=== PATIENT | female | born 1945 | race Caucasian/White ===

== ENCOUNTER → 2020-09-11 | Outpatient (CLI) | payer MEDICARE, OTHER ==
[~2020-09-11] MED LIST: ACET325 PO; ALUMAG30SU PO; ASPI81CH PO; ASPI81EC PO; Acetaminophen325 M1 PO; Aspir 8181 MG PO; BISA10S PR; CARV3.125 PO; CLOP75 PO; COLCRYS0.6 MG PO; DOCU100 PO; FAMO20 PO; HYDR1TAB94 PO; LAXATIVE17.2 MG PO; LEVO750 PO; LEVSOD100 PO; LEVSOD125 PO; LISI5 PO; LIVALO1 MG PO; Miralax17 GM PO; NITR.6SL SL; OMEP20ER PO; PANT40 PO; PROM25 PO; SOTO80 PO; Synthroid/Levothroid PO; Synthroid25 MCG PO; TRAM50 PO; WARF2.5 PO; WARF5 PO
== END | disposition home or self-care (01) ==
LOC: LAB 10:52 → LAB SHORT 10:52
DX: N39.0 Urinary tract infection, site not specified (principal)
CPT/HCPCS: 87077; 87086; 87186

== ENCOUNTER → 2020-10-12 | Outpatient (CLI) | payer MEDICARE, OTHER | END | disposition home or self-care (01) | LOC: LAB SHORT 18:16 → LAB 18:16 | DX: N39.0 Urinary tract infection, site not specified (principal) | CPT/HCPCS: 87086 ==

== ENCOUNTER → 2021-07-05 | Outpatient (CLI) | payer MEDICARE, OTHER | END | disposition home or self-care (01) | LOC: LAB SHORT 14:06 | DX: N39.0 Urinary tract infection, site not specified (principal) | CPT/HCPCS: 87086 ==

== ENCOUNTER → 2021-08-09 | Outpatient (CLI) | payer MEDICARE, OTHER ==
[2021-08-09 14:31] LABS: Source, Urine Clean Catch
[2021-08-09 19:06] LABS: Appearance, Urine Hazy (Clear); Bilirubin, Urine Neg (Neg); Blood, Urine 1+ (Neg); Color, Urine Yellow (P-Yellow); Glucose Qualitative, Urine Neg (Neg); Ketones, Urine Neg (Neg); Leukocyte Esterase, Urine 3+ (Neg); Nitrite, Urine Neg (Neg); Protein, Urine Neg (Neg); Urobilinogen, Urine NORM (Normal)
[2021-08-09 19:19] LABS: Bacteria Many /hpf; Squamous Epithelial Cells Few /hpf (Few)
== END | disposition home or self-care (01) ==
LOC: LAB SHORT 14:28
PROVIDERS: Family Medicine
DX: N39.0 Urinary tract infection, site not specified (principal)
CPT/HCPCS: 81001; 87077; 87086; 87186

== ENCOUNTER → 2021-10-06 | Outpatient (CLI) | payer MEDICARE, OTHER | END | disposition home or self-care (01) | LOC: LAB 15:34 → LAB SHORT 15:34 | DX: N39.0 Urinary tract infection, site not specified (principal) | CPT/HCPCS: 87077; 87086; 87186 ==

== ENCOUNTER 2021-10-14 13:56 | Inpatient (IN) | payer MEDICARE, OTHER ==
[~2021-10-14] VITALS: Ht 165.1 cm; Wt 62.7 kg
[2021-10-14 14:39] LABS: BASOPHILS ABSOLUTE AUTO 0.04 K/mm3 (0.00-0.23); BASOPHILS PERCENT AUTO 1 % (0-2); EOSINOPHILS ABSOLUTE AUTO 0.08 K/mm3 (0.00-0.68); EOSINOPHILS PERCENT AUTO 1 % (0-6); Hematocrit 42.1 % (33.0-51.0); Hemoglobin 14.3 g/dL (11.5-16.0); IMMATURE GRAN ABSOLUTE AUTO 0.03 K/mm3 (0.00-0.10); IMMATURE GRAN PERCENT AUTO 0 % (0-1); LYMPHOCYTES ABSOLUTE AUTO 1.36 K/mm3 (0.84-5.20); LYMPHOCYTES PERCENT AUTO 19 % (21-46); MONOCYTES ABSOLUTE AUTO 0.61 K/mm3 (0.16-1.47); MONOCYTES PERCENT AUTO 9 % (4-13); Mean Corpuscular HGB 30.2 pg (26.0-34.0); Mean Corpuscular Volume 89 fL (80-100); Mean Platelet Volume 10.1 fL (9.1-12.4); NEUTROPHILS ABSOLUTE AUTO 5.05 K/mm3 (1.96-9.15); NEUTROPHILS PERCENT AUTO 70 % (41-73); Platelet Count 404 K/mm3 (150-400); RDW Coefficient Variation 12.8 % (11.7-14.2); RDW Standard Deviation 42.2 fL (35.1-46.3); Red Blood Cell Count 4.74 M/mm3 (3.80-5.20); White Blood Cell Count 7.17 K/mm3 (4.00-11.30)
[2021-10-14 15:02] LABS: Albumin, Blood 3.8 g/dL (3.4-5.0); Albumin/Globulin Ratio 0.9 (0.8-1.8); Bilirubin, Total 0.4 mg/dL (0.1-1.0); Creatinine, Blood 0.92 mg/dL (0.40-1.00); Globulin, Blood 4.1 g/dL (2.2-4.0); Potassium, Blood 3.9 mmol/L (3.5-5.5); Total Protein, Blood 7.9 g/dL (6.4-8.2)
[2021-10-14] MEDS ORDERED: BUPR75 PO (16:04)
[2021-10-14] MEDS ORDERED: PRAV20 PO (16:04)
[2021-10-14] MEDS ORDERED: NITR.4SL SL (16:05)
[2021-10-14] MEDS ORDERED: Isosorbide Mono30 MG PO (16:05)
[2021-10-14 19:31] LABS: International Normalized Ratio 2.51; Prothrombin Time Results 24.8 Sec (9.7-11.5)
--- NOTE | 2021-10-15 01:17 | NUR ---
CALL TO DAUGHTER PT REQUESTED THAT DAUGHTER JIM BE UPDATED WITH NEW ROOM # AND REASON FOR HIGHER LEVEL OF CARE. UPDATED HER WITH ANSWERED ALL QUESTIONS, NOTIFIED PRIMARY RN BENI.
[2021-10-15 02:32] LABS: BASOPHILS ABSOLUTE AUTO 0.04 K/mm3 (0.00-0.23); BASOPHILS PERCENT AUTO 1 % (0-2); EOSINOPHILS ABSOLUTE AUTO 0.06 K/mm3 (0.00-0.68); EOSINOPHILS PERCENT AUTO 1 % (0-6); Hematocrit 40.5 % (33.0-51.0); Hemoglobin 13.4 g/dL (11.5-16.0); IMMATURE GRAN ABSOLUTE AUTO 0.07 K/mm3 (0.00-0.10); IMMATURE GRAN PERCENT AUTO 1 % (0-1); LYMPHOCYTES ABSOLUTE AUTO 1.15 K/mm3 (0.84-5.20); LYMPHOCYTES PERCENT AUTO 14 % (21-46); MONOCYTES ABSOLUTE AUTO 0.74 K/mm3 (0.16-1.47); MONOCYTES PERCENT AUTO 9 % (4-13); Mean Corpuscular HGB 29.5 pg (26.0-34.0); Mean Corpuscular HGB Conc 33.1 g/dL (31.5-36.5); Mean Corpuscular Volume 89 fL (80-100); Mean Platelet Volume 10.1 fL (9.1-12.4); NEUTROPHILS ABSOLUTE AUTO 6.11 K/mm3 (1.96-9.15); NEUTROPHILS PERCENT AUTO 75 % (41-73); Platelet Count 338 K/mm3 (150-400); RDW Coefficient Variation 12.8 % (11.7-14.2); RDW Standard Deviation 41.8 fL (35.1-46.3); Red Blood Cell Count 4.54 M/mm3 (3.80-5.20); White Blood Cell Count 8.17 K/mm3 (4.00-11.30)
[2021-10-15 02:51] LABS: Albumin, Blood 3.3 g/dL (3.4-5.0); Albumin/Globulin Ratio 0.9 (0.8-1.8); Bilirubin, Total 0.5 mg/dL (0.1-1.0); Calcium, Blood 9.5 mg/dL (8.5-10.1); Creatinine, Blood 0.92 mg/dL (0.40-1.00); Globulin, Blood 3.6 g/dL (2.2-4.0); Total Protein, Blood 6.9 g/dL (6.4-8.2)
--- NOTE | 2021-10-15 05:53 | NUR ---
SHIFT SUMMARY PT TRANSFERRED TO UNIT FROM MEDICAL FLOOR. AXO. IN SR WITH APARENT ST CHANGES, NO MAJOR CHANGE FROM ER EKG. PT HAD RECEIVED IV MOP AND SL NITRO ON MED. PT HAS NOT REQUIRED THESE UPON TRANSFER. PT HAS STATED BEING COMFORTABLE POST THESE MED ADMINISTRATIONS AND TRANSFER. HEPARIN GTT INITIATED. ADMISSION COMPLETED. PT NPO SINCE MIDNIGHT FOR POSSIBLE ANGIO. BED ALARM ON.
[2021-10-15 10:47] LABS: International Normalized Ratio 2.14; Prothrombin Time Results 21.4 Sec (9.7-11.5)
--- NOTE | 2021-10-15 14:45 | NUR ---
SHIFT SUMMARY: UPON BEGINNING OF SHIFT, PT WAS HAVING ANGINA AND WAS GIVEN A NITRO PATCH. PT. HAS AN INCREASE IN COMFORT FOR ANGINA, AND CURRENTLY STATES SHE ONLY HAS A SCANT AMOUNT OF PRESSURE, NO PAIN. PT. WAS NPO UNTIL AROUND [address] CARLSON (HOTEL OFFICE MANAGER) CAME IN AND LET THE PT. KNOW THAT AN ANGIO WAS NOT GOING TO HAPPEN TODAY. PT. WAS INFORMED OF HER TWO OPTIONS TO AN ANGIO MONDAY OR TWO DAY HEPRIN INFUSION W/ A ROAD TRIAL (WALKING AROUND PER HOTEL OFFICE MANAGER). PT. STATED SHE IS LEANING MORE TOWARDS THE HEPRIN INFUSIONS. PT. STATES THAT SHE IS COMFORTABLE, AND HAS NO COMPLAINTS. SHE IS A 1P SBA TO THE BATHROOM, AND A&OX4. WILL CONTINUE TO MONITOR.
--- NOTE | 2021-10-15 14:54 | NUR ---
Pt. is awake in bed and welcomes my visit. Pt is pleasant and only slightly unsettled about the care needs of her at home. Establish rapport. Pt. displays evidence of engagement and bridget. Prayed with Pt. Pt. verbalized gratitude for the spiritual care visit.
--- NOTE | 2021-10-15 22:08 | NUR ---
NITRO PATCH OFF AT 2200 PER ORDER, PT DENIES CP. UP TO BATHROOM AND MEDICATED WITH ZOFRAN FOR NAUSEA PER REQUEST. BP 113/51 (67), HR 68 BPM.
--- NOTE | 2021-10-16 08:04 | NUR ---
SHIFT SUMMARY PT AOX4, DENIES CP T/O SHIFT FOR THIS RN WHEN ASKED. C/O SOME LIGHTHEADEDNESS, NAUSEA, AND DIZZINESS. MEDICATED FOR NAUSEA PER ORDERS. UP TO BATHROOM INDEPENDENTLY. NO CHANGES TO HEPARIN GTT, CONTINUES AT 9 U/KG/HR.
[2021-10-16 08:46] LABS: Hematocrit 38.7 % (33.0-51.0); Hemoglobin 12.6 g/dL (11.5-16.0); Mean Platelet Volume 10.4 fL (9.1-12.4); Platelet Count 328 K/mm3 (150-400)
--- NOTE | 2021-10-16 15:19 | NUR ---
SHIFT SUMMARY PT'S ONLY DISCOMFORT IS SLIGHT CHEST PAIN THAT WAS PRESENT AT THE BEGINNING OF THE SHIFT. CARDIOLIGIST CHANGED MEDICATIONS, AND NITRO PATCH WAS D/C'D. PT. HAS NOT C/O ANY MORE CHEST DISCOMFORT. HEPRIN DRIP INFUSING AT 9 gGTS W/O ANY BREAKS. PT AMBULATED TO THE BATHROOM AND REMAINS AT REST. SHE WAS SET UP FOR A BEDBATH AND IND GAVE HER SELF A BATH. HER V.S REMAIN STABLE, AND THERE ARE NO CONCERNS AT THIS TIME. WILL CONTINUE TO MONITOR
--- NOTE | 2021-10-16 22:37 | NUR ---
CALL TO HOSPITALIST RESIDENT MD JONES. PT REQUESTING THAT FAMOTIDINE ADMINISTRATION TIME BE CHANGED TO 1800 TO COINCIDE WITH HER HOME DOSING REGIMEN. OTHERWISE, PT HAS ISSUES WITH ACID REFLUX IN THE EVENING. ORDER RECEIVED TO CHANGE TIMING OF FAMOTIDINE ORDER AND OKAY TO GIVE AN EXTRA DOSE TONIGHT.
--- NOTE | 2021-10-17 01:00 | NUR ---
23:55 CALLED TO PATIENT'S ROOM DUE TO COMPLAINTS OF PAIN WHILE UP AMBULATING TO THE BATHROOM WITH BLOOD BANK WORKER. PT REPORTS 7/10 PAIN IN HER JAW AND EARS, HEAD AND RADIATING DOWN HER LEFT ARM. SHE REPORTS THAT THIS PAIN IS PRESENTING DIFFERENTLY THAN THE PAIN SHE EXPERIENCED PRIOR TO ADMISSION. SHE APPEARS ANXIOUS, FEARFUL AND IS CLOSE TO TEARS. 2 MG IV MORPHINE ADMINISTERED AND 2 LPM SUPPLEMENTAL OXYGEN APPLIED. VITAL SIGNS TAKEN (SEE EMR). EDUCATION PROVIDED REGARDING PLAN OF CARE RELATED TO CHEST PAIN. PAIN 7/10 PRIOR TO MORPHNE AND DECREASED TO 4/10 10 MINUTES POST ADMNINISTRATION AND THEN TO 2/10 30 MINUTES POST MORPHINE. ELECTRODE CLEANING MACHINE OPERATOR DR. PARIKH HAPPENED TO BE ON THE UNIT AT THE TIME OF THIS EVENT AND DID PROVIDE AN ORDER FOR SUBLINGUAL NITROGLYCERIN. ONE DOSE ADMINISTERED AND PATIENT REPORTED BEING PAIN FREE AT 00:55. PATIENT IS NOW RESTING COMFORTABLY. WILL CONTINUE TO MONITOR.
[2021-10-17 04:17] LABS: Hematocrit 35.5 % (33.0-51.0); Hemoglobin 11.5 g/dL (11.5-16.0); Mean Platelet Volume 10.4 fL (9.1-12.4); Platelet Count 317 K/mm3 (150-400)
--- NOTE | 2021-10-17 09:23 | NUR ---
MORNING BRADICARIDA EPISODE ABOUT 0900 THIS MORNING THE PT. WAS BROUGHT TO THE BATHROOM BY THE LEGAL ADMINISTRATIVE ASSISTANT, AND WHEN THE PT WAS IN THE RESTROOM SHE TOLD ME SHE NEEDED HELP BECAUSE SHE WAS FEELING LIGHT HEADED. PT WAS HAVING A BRADICARDIA EPISODE AND HER HEART RATE DROPPED TO 41 BPM. BE RN CAME TO HELP AND WE GOT THE PT. IN A WHEELCHAIR TO GET HER BACK TO BED. BEFORE GETTING IN BED THE PT. STATED SHE WAS GETTING MORE LIGHT HEADED AND THEN SHE PASSED OUT FOR ABOUT 5-10 SEC. THE CHARGE NURSE CAME IN AND WE WERE ABLE TO WAKE THE PT. AND GET HER BACK TO BED. THE PT'S BP REMAINED STABLE AT125/57 (77) AND HEART RATE OF 58 BPM. AN EKG WAS OBTAINED. PT. HAS HAD RECENT ISOSOBIDE INCREASES DUE TO AN EVENT OF ANGINA, AND HAS NOT TOLERATED HIGHER DOSES PRIOR TO HOSPITILATION. DOSE OF 120 MG PD GIVEN AT ABOUT 0630 ON TABLE INSPECTOR. PT. DOES NOT REPORT ANYMORE ANGINA, AND AT 0900 HAD THE BRADICARIDA EPISODE LISTED ABOVE. CALLED DR. ETLLEZ, AND GOT ORDERS FOR STRICT BEDREST, HOLD ALL BETA BLOCKERS, AND HE WILL REVIEW HER MEDICATIONS. PT.'S MEDICATIONS HELD DUE TO EPISDOE AND WILL ADMINISTER LATE. COREG WILL BE HELD.
--- NOTE | 2021-10-17 18:10 | NUR ---
SHIFT SUMMARY PT. WAS FEELING FAIRLY WELL THIS MORNING DESPITE HIS CRONIC BACK PAIN. HE WAS GIVEN BOWEL PREP AND HAD A BLACK TARRY LOOSE BM A SAMPLE WAS SENT FOR AN OCCULT TEST AND CAME BACK POSITIVE, FOLLOWED BY 2 BM'S, H&H DRAWN HGB DROPPED TO 7.1 WILL BE RECHECKED AT 2000 TONIGHT. GI HAS BEEN CONSULTED NO GI AVAILABLE TODAY WILL CLAL CONSULT IN AM, MORTGAGE COLLECTOR AWARE. PT. WAS C/O RUQ PAIN THIS AFTERNOON AND ULTRASOUND WAS PREFORMED SHOWING AN "ENGLARGED LIVER" PER HOSPITALIST. PT. WAS FEELING NAUSEOUS AND AN ORDER OF ZOFRAN WAS OBTAINED AND GIVEN. THE ZOFRAN DID NOT HELP, NOTIFIED. PT HAS REFUSED SOME REPOSITONINGS DUE TO PAIN. DAUGHTER CAME TO VISIT, AND WAS UPDATED ON THE PT. PT. IS NOT FEELING WELL, IS IN PAIN, AND SKIN IS COOL/CLAMMY. HE HAD A FEVER THIS MORNING BUT IT WENT AWAY AFTER TYLONAL WAS GIVEN. PROTONIX ORDERED AT 10MLS/HR. PT MEDICATED Q4 HRS FOR PAIN OXY 5MG PO. PT REFUSED TO EAT LUNCH AND DINNER DUE TO NAUSEA, PT NOW IN BED RESTING CALL LIGHTS IN REACH WILL REPORT TO ONCOMING SHIFT
--- NOTE | 2021-10-17 19:25 | NUR ---
ASSESSMENT/ASSUMED CARE PT SITTING UP IN BED. A&O. DENIES PAIN AT THIS TIME EXCEPT FOR ABD CRAMPING DUE TO STOOL SOFTENERS/DIARRHEA. PT USING HEATING PAD TO ABD FOR COMFORT. LUNGS CLEAR ON ROOMAIR. RESP EVEN AND NONLABORED. HEART RATE REGULAR IN THE 70'S. BP STABLE. NO EDEMA. MOVING SELF AROUND IN BED. HEPARIN INFUSING VIA IV 20G TO RIGHT FOREARM. SITE CLEAR. PT STATES,"I'M FEELING BETTER RIGHT NOW". HEPARIN TO BE STOPPED AT 0700 FOR ANGIO IN AM. PT NPO AFTER MIDNIGHT.
--- NOTE | 2021-10-17 19:51 | NUR ---
PT C/O CHEST PAIN 5/10 AFTER USING BED LONGO. MORE IN NECK AND SHOULDER. SOME IN CHEST BUT STRONGER IN NECK AND LEFT SHOULDER. MED WITH NTG SL.
--- NOTE | 2021-10-17 19:56 | NUR ---
PT REPORTS CHEST PAIN DOWN TO 03/15 AFTER ONE NTG. BP 143/58 (80) HEART RATE 71. MED WITH NTG SL. PT REPORTS," PAIN IS GETTING BETTER AND BETTER"
--- NOTE | 2021-10-17 19:59 | NUR ---
PT REPORTS NO CHEST PAIN OR PRESSURE AFTER TWO NTG SL. HEART RATE 69 BP 128/58 (77)
--- NOTE | 2021-10-17 22:30 | NUR ---
CHEST PAIN PT REPORTS CHEST PAIN 10/10 AFTER USING BEDPAN. PT MED WITH NTG SL AND EKG DONE. REPORTS CHEST PAIN 3/10 AFTER FIRST DOSE OF NTG. MED WITH SECOND DOSE OF NTG. NO PAIN AFTER SECOND DOSE OF NTG.
--- NOTE | 2021-10-17 23:41 | NUR ---
PT RESTING QUIETLY. DENIES PAIN OR DISCOMFORT AT THIS TIME
[2021-10-18 03:58] LABS: BASOPHILS ABSOLUTE AUTO 0.04 K/mm3 (0.00-0.23); BASOPHILS PERCENT AUTO 1 % (0-2); EOSINOPHILS ABSOLUTE AUTO 0.12 K/mm3 (0.00-0.68); EOSINOPHILS PERCENT AUTO 2 % (0-6); Hematocrit 36.6 % (33.0-51.0); Hemoglobin 11.9 g/dL (11.5-16.0); IMMATURE GRAN ABSOLUTE AUTO 0.01 K/mm3 (0.00-0.10); IMMATURE GRAN PERCENT AUTO 0 % (0-1); LYMPHOCYTES ABSOLUTE AUTO 1.13 K/mm3 (0.84-5.20); LYMPHOCYTES PERCENT AUTO 15 % (21-46); MONOCYTES PERCENT AUTO 12 % (4-13); Mean Corpuscular HGB 29.7 pg (26.0-34.0); Mean Corpuscular HGB Conc 32.5 g/dL (31.5-36.5); Mean Corpuscular Volume 91 fL (80-100); Mean Platelet Volume 10.4 fL (9.1-12.4); NEUTROPHILS ABSOLUTE AUTO 5.15 K/mm3 (1.96-9.15); NEUTROPHILS PERCENT AUTO 70 % (41-73); Platelet Count 319 K/mm3 (150-400); RDW Coefficient Variation 13.2 % (11.7-14.2); RDW Standard Deviation 43.8 fL (35.1-46.3); Red Blood Cell Count 4.01 M/mm3 (3.80-5.20); White Blood Cell Count 7.35 K/mm3 (4.00-11.30)
[2021-10-18 04:15] LABS: Albumin, Blood 3.1 g/dL (3.4-5.0); Albumin/Globulin Ratio 0.9 (0.8-1.8); Bilirubin, Total 0.5 mg/dL (0.1-1.0); Bun/Creatinine Ratio 11.8 (12.0-20.0); Calcium, Blood 8.9 mg/dL (8.5-10.1); Creatinine, Blood 0.94 mg/dL (0.40-1.00); Globulin, Blood 3.6 g/dL (2.2-4.0); Potassium, Blood 3.9 mmol/L (3.5-5.5); Total Protein, Blood 6.7 g/dL (6.4-8.2)
--- NOTE | 2021-10-18 05:35 | NUR ---
SHIFT SUMMARY PT RESTING QUIETLY. HAS BEEN NPO SINCE MIDNIGHT FOR POSSIBLE ANGIO THIS AM. PT HAS HAD TWO BOUTS OF CHEST PAIN BOTH AFTER USING THE BEDPAN. BOTH RELIEVED WITH TWO NTG SL. ABD CRAMPING IMPROVED DURING THE NIGHT. VSS. EKG DONE WITH CHEST PAIN, NO CHANGES. HEPARIN GTT INCREASED TO 10 UNITS/KG/HR. NEXT APTT AT 1100. REPORT TO ON COMING NURSE
--- NOTE | 2021-10-18 15:51 | NUR ---
MORNING SHIFT SUMMARY BEFORE ANGIO PT. HAD THREE EPISODES OF ANIGNA TODAY AFTER USING THE BED LONGO. SHE WAS GIVEN 1-2 NITRO TABS EVERY TIME AND IT STOPPED THE PAIN. HEPRIN WAS STOPPED AROUND 0725 THIS MORNING, IMDUR AND COREG HELD FOR ANGIO PER DR. TELLEZ. PT. HAS HAD SOME MODERATE CRAMPING IN HER LOWER ABDOMEN AND HAS A HEATING PAD FOR COMFORT, WHICH HAS HELPED. PT. NPO SINCE 0000, AND WENT FOR AN ANGIO AROUN 1530 THIS AFTER NOON. VS. HAVE REMAINED STABLE WILL CONTINUE TO MONITOR THE PT. AFTER SHE RETURNS FROM THE [employer] E[employer]IC WARFARE OPERATOR, DAUGHTER NOTIFIED, REQUESTED, WHEN PT WENT TO THE PROCEDURE.
--- NOTE | 2021-10-18 19:15 | NUR ---
UPDATE: DIETARY SERVICES DIRECTOR ROUNDING. DIETARY SERVICES DIRECTOR @ BEDSIDE TO DISCUSS PROCEDURE. UPDATED PT ON STENT & BALLOON PLACEMENT. NO HEPARIN gtt. PLAVIX & BRILINTA IN THE AM. DISCUSSED PAIN COVERAGE W/ PT & PROVIDER, ALL PARTIES AGREE COVERAGE IS ACCEPTABLE. OPPORTUNITY PROVIDED FOR QUESTIONS & ALL QUESTIONS ANSWERED.
--- NOTE | 2021-10-18 20:16 | NUR ---
ASSUMED CARE OF PT, BEDSIDE REPORT RECEIVED AT 1915, PT IS RESTING QUIETLY WITH BED FLAT AND TILTED SO THAT HOB IS SLIGHTLY ELEVATED WHILE MAINTAINING RIGHT GROIN ACCESS PRECAUTIONS. PT STATES THAT BED POSITION IS VERY COMFORTABLE. SHE IS ALERT AND ORIENTED, DENIES N/V, DENIES SOB/DYSPNEA, DENIES NUMBNESS/TINGLING, DOES ADMIT TO 2/10 PAIN TO LEFT CHEST RADIATING TO ANTERIOR NECK, JAW, LEFT SHOULDER AND AXILLA, DR TELLEZ AT BEDSIDE FOR PAIN ASSESSMENT AND STATES THAT THE PAIN IS EXPECTED, WILL CONT TO MONITOR. RIGHT GROIN ACCESS SITE DRESSING CDI, SMALL AMOUNT OF CAPILLARY BLEEDING IS NOTED UNDER DRESSING, SITE IS SOFT WITHOUT EVIDENCE OF BLEEDING OR HEMATOMA. PEDAL PULSES FULL OF NOTE ABLE TO PALPATE WELL THROUGH PT SOCKS. SHE DENIES FURTHER NEEDS AT THIS TIME, CALL LIGHT IN REACH AND WILL CALL FOR ASSISTANCE. VERBALIZES UNDERSTANDING OF ACTIVITY RESTRICTIONS RELATED TO GROIN ACCESS.
--- NOTE | 2021-10-19 05:36 | NUR ---
PT HAS HAD INTERMITTENT CHEST PAIN THIS SHIFT, WAS MEDICATED FOR CHEST PAIN BY DAY SHIFT RN JUST PRIOR TO DR TELLEZ ARRIVING TO BEDSIDE FOR PT UPDATE, PER DR TELLEZ, PAIN WAS EXPECTED POST INTERVENTION, FIRST REPORTED CHEST PAIN WAS 10/10 TO LEFT CHEST, SHOULDER, AXILLA, ANTERIOR NECK AND JAW. MORPHINE 2 MG IV DECREASED PAIN TO 2/10 UNTIL 0245 THIS AM AT WHICH TIME HER PAIN INCREASED TO 9/10. AT THIS TIME HER PAIN WAS LOCATED LEFT CHEST, SHOULDER, ANTERIOR NECK, AND JAW, SHE STATED THAT THERE WAS NO PAIN TO AXILLARY AREA. PAIN WAS CONTROLLED TO 3/10 WITH MORPHINE ADMINISTRATION, SHE AGAIN COMPLAINED OF PAIN AT 0445, 9/10, THIS INCIDENT PAIN WAS LOCATED LEFT CHEST, ANTERIOR NECK, AND JAW, NO PAIN TO LEFT SHOULDER. PAIN WAS AGAIN CONTROLLED TO 3/10 WHICH PT STATES IS ACCEPTABLE. SHE DENIED NAUSEA WITH EACH EPISODE OF CHEST PAIN AND ALSO NOTED THAT SHE DID NOT HAVE A FEELING OF IMPENDING DOOM, "I NOTICED THAT I WASN'T SCARED THIS TIME." COUGH AND DEEP BREATHING WAS DISCUSSED WITH PT, UNDERSTANDING VERBALIZED. RIGHT GROIN ACCESS SITE HAS MAINTAINED STABLE THROUGHOUT NOC, PULSES REMAIN FULL TO EXTREMITIES X 4.
--- NOTE | 2021-10-19 10:43 | NUR ---
ASSUMPTION OF CARE: PATIENT WAS SEEN BY DR. TELLEZ SHORTLY FOLLOWING ASSUMPTION. DC PLAVIX DUE TO BRILLINTA, CARDIAC DIET OK. ROOM WAS CLEAN, PATIENT IN NO ACUTE SIGNS OF DISTRESS, ASSESSMENT PREFORMED, UPON THE END OF ASSESSMENT PATIENT STARTED TO HAVE AN INCREASE TO HER BASELINE CHEST PAIN, TO A 4, MONITORED FOR THE NEXT 15 MINUTES, INCREASED TO A 5 PATIENT REQUESTED NITROQUICK, 1 X GIVEN WITH IMMEDIATE RELIEF, BLOOD PRESSURE STABLE. PATIENT ANGIO SITE IS C/D/I. PATIENT BP MAP >65 SPO2 AT REST 94-95PERCENT ON RA. NO TENDERNESS TO ABD. PATIENT CHEST PAIN EPISODES THROUGH THE NIGHT ARE DECREASEING IN DURATION FREQUENCY AND SEVERITY ACCORDING TO NIGHT RN AND PATIENT. IV FLUSHED. LATER DR. RIVERA STOPPED BY AND PATIENT HAS BEEN DOWNGRADED TO PCU BOTH GEOFF AND MIGUEL WANT TO MONITOR CHEST PAIN EPISODES TODAY OBSERVE FOR ANOTHER DAY AND DC. WITH OUTPATIENT FOLLOW UP. PATIENT HAS SMALL APPETITE OFFERED CRACKERS, AND SUPPLEMENTAL DRINKS. PATIENT RECEPTIVE TO EDUCATION AND UNDERSTANDING OF PLAN OF CARE.
[2021-10-19 12:07] LABS: International Normalized Ratio 1.21; Prothrombin Time Results 12.5 Sec (9.7-11.5)
--- NOTE | 2021-10-19 13:18 | NUR ---
transfer ASSUMED CARE OF THE PATIENT. REPORT TAKEN FROM PACKING MACHINE TENDER ANDREW. PT AMBULATED FROM ICU ROOM 15 TO PCU ROOM 15, MILDLY SOB ON ARRIVAL PT DENIED C/P. PT ORIENTED TO THE ROOM LAYOUT AND CALL SYSTEM. VS TAKEN WNL
--- NOTE | 2021-10-19 15:44 | NUR ---
PT A/OX4, PLEASANT AND COOPERATIVE. PT UP IND TO THE BATHROOM. PT APPEARS TO BE BREATHING EASILY ON RA AT THIS TIME. THE PT CONTINUES TO DENY C/P AT THIS TIME. CALL LIGHT IN REACH, REPORT GIVEN TO BE BASS
--- NOTE | 2021-10-19 16:12 | NUR ---
RECEIVED REPORT FROM KATERIN BASS, PT IN BED SURING REPORT, DENIES CP, AMBULATORY INDEPENDENT AND CAN REPOSITION SELF IN BED, PLAN TO DISCHARGE IN AM. VITALS STABLE. WILL MONITOR UNTIL END OF SHIFT
[2021-10-20 04:14] LABS: BASOPHILS ABSOLUTE AUTO 0.02 K/mm3 (0.00-0.23); BASOPHILS PERCENT AUTO 0 % (0-2); EOSINOPHILS ABSOLUTE AUTO 0.04 K/mm3 (0.00-0.68); EOSINOPHILS PERCENT AUTO 1 % (0-6); Hematocrit 35.4 % (33.0-51.0); IMMATURE GRAN ABSOLUTE AUTO 0.04 K/mm3 (0.00-0.10); IMMATURE GRAN PERCENT AUTO 1 % (0-1); LYMPHOCYTES ABSOLUTE AUTO 0.57 K/mm3 (0.84-5.20); LYMPHOCYTES PERCENT AUTO 7 % (21-46); MONOCYTES ABSOLUTE AUTO 1.12 K/mm3 (0.16-1.47); MONOCYTES PERCENT AUTO 13 % (4-13); Mean Corpuscular HGB 30.1 pg (26.0-34.0); Mean Corpuscular HGB Conc 33.9 g/dL (31.5-36.5); Mean Corpuscular Volume 89 fL (80-100); Mean Platelet Volume 10.4 fL (9.1-12.4); NEUTROPHILS ABSOLUTE AUTO 6.96 K/mm3 (1.96-9.15); NEUTROPHILS PERCENT AUTO 80 % (41-73); Platelet Count 300 K/mm3 (150-400); RDW Coefficient Variation 13.2 % (11.7-14.2); RDW Standard Deviation 42.6 fL (35.1-46.3); Red Blood Cell Count 3.99 M/mm3 (3.80-5.20); White Blood Cell Count 8.75 K/mm3 (4.00-11.30)
[2021-10-20 04:29] LABS: International Normalized Ratio 1.16; Prothrombin Time Results 12.1 Sec (9.7-11.5)
[2021-10-20 04:38] LABS: Bun/Creatinine Ratio 12.4 (12.0-20.0); Calcium, Blood 8.9 mg/dL (8.5-10.1); Creatinine, Blood 0.64 mg/dL (0.40-1.00); Potassium, Blood 3.8 mmol/L (3.5-5.5)
[2021-10-20] MEDS ORDERED: ASPI81CH PO (10:54)
[2021-10-20] MEDS ORDERED: ACET325 PO (10:54)
[2021-10-20] MEDS ORDERED: TICA90TA PO (10:55)
[2021-10-20] MEDS ORDERED: EZET10 (10:55)
== END 2021-10-20 12:17 | disposition home or self-care (01) | DRG 247 ==
LOC: ER 13:56 → MEDS 13:57 → PCU 13:57 → ER 17:46 → MEDS 17:46 → PCU 23:25 → ICUW 10-17 10:06 → PCU 10-17 10:07 → ICUW 10-18 17:44 → PCU 10-19 13:00
PROVIDERS: Internal Medicine; Internal Medicine Cardiovascular Disease; Physician Assistant; ADMIT Internal Medicine
PROC: 027135Z Dilation of Coronary Artery, Two Arteries with Two Drug-eluting Intraluminal Devices, Percutaneous Approach (ICD-10-PCS; principal; 2021-10-18)
PROC: 4A023N7 Measurement of Cardiac Sampling and Pressure, Left Heart, Percutaneous Approach (ICD-10-PCS; 2021-10-18)
PROC: B2181ZZ Fluoroscopy of Left Internal Mammary Bypass Graft using Low Osmolar Contrast (ICD-10-PCS; 2021-10-18)
PROC: B240ZZ3 Ultrasonography of Single Coronary Artery, Intravascular (ICD-10-PCS; 2021-10-18)
PROC: B2111ZZ Fluoroscopy of Multiple Coronary Arteries using Low Osmolar Contrast (ICD-10-PCS; 2021-10-18)
PROC: B2121ZZ Fluoroscopy of Single Coronary Artery Bypass Graft using Low Osmolar Contrast (ICD-10-PCS; 2021-10-18)
DX: I21.4 Non-ST elevation (NSTEMI) myocardial infarction (principal); N39.0 Urinary tract infection, site not specified; I48.19 Other persistent atrial fibrillation; T82.855A Stenosis of coronary artery stent, initial encounter; I50.22 Chronic systolic (congestive) heart failure; I13.0 Hypertensive heart and chronic kidney disease with heart failure and stage 1 through stage 4 chronic kidney disease, or unspecified chronic kidney disease; D63.1 Anemia in chronic kidney disease; E03.9 Hypothyroidism, unspecified; K21.9 Gastro-esophageal reflux disease without esophagitis; Z66 Do not resuscitate; E78.00 Pure hypercholesterolemia, unspecified; N18.2 Chronic kidney disease, stage 2 (mild); F41.9 Anxiety disorder, unspecified; B96.1 Klebsiella pneumoniae [K. pneumoniae] as the cause of diseases classified elsewhere; I25.110 Atherosclerotic heart disease of native coronary artery with unstable angina pectoris; Z86.39 Personal history of other endocrine, nutritional and metabolic disease; Z98.890 Other specified postprocedural states; Z88.2 Allergy status to sulfonamides; Z88.1 Allergy status to other antibiotic agents; Z86.19 Personal history of other infectious and parasitic diseases; Z90.49 Acquired absence of other specified parts of digestive tract; Z90.710 Acquired absence of both cervix and uterus; Z90.721 Acquired absence of ovaries, unilateral; Z87.891 Personal history of nicotine dependence; Z79.01 Long term (current) use of anticoagulants; Z95.1 Presence of aortocoronary bypass graft; Z95.5 Presence of coronary angioplasty implant and graft; Z88.5 Allergy status to narcotic agent; Z88.0 Allergy status to penicillin; Z88.8 Allergy status to other drugs, medicaments and biological substances; Z79.899 Other long term (current) drug therapy; Z79.02 Long term (current) use of antithrombotics/antiplatelets; Y71.2 Prosthetic and other implants, materials and accessory cardiovascular devices associated with adverse incidents
CPT/HCPCS: 36415; 71045; 76937; 78451; 80048; 80053; 84484; 85014; 85018; 85025; 85049; 85347; 85610; 85730; 92920; 92937; 92978; 93005; 93010; 93459; 96374; 96376; 99152; 99153; 99285-25; A9270; A9500; C1725; C1753; C1760; C1769; C1874; C1887; C1894; C8929; C9600; G0378; J1644; J2250; J2270; J2405; J3010; J7030; J7040; Q9957; Q9967

== ENCOUNTER → 2021-10-28 | Outpatient (CLI) | payer MEDICARE, OTHER ==
[~2021-10-28] MED LIST changes: +BUPR75 PO; +EZET10; +Isosorbide Mono30 MG PO; +NITR.4SL SL; +PRAV20 PO; +TICA90TA PO
== END | disposition home or self-care (01) ==
LOC: LAB SHORT 15:16
DX: N39.0 Urinary tract infection, site not specified (principal)
CPT/HCPCS: 87077; 87086; 87186

== ENCOUNTER → 2022-05-18 | Outpatient (CLI) | payer MEDICARE, OTHER | END | disposition home or self-care (01) | LOC: LAB SHORT 15:58 | DX: N39.0 Urinary tract infection, site not specified (principal) | CPT/HCPCS: 87077; 87086; 87186 ==

== ENCOUNTER 2022-06-05 23:42 | Inpatient (IN) | payer MEDICARE, OTHER ==
[~2022-06-05] VITALS: Ht 165.1 cm; Wt 62.5 kg
[2022-06-06 00:13] LABS: BASOPHILS ABSOLUTE AUTO 0.04 K/mm3 (0.00-0.23); BASOPHILS PERCENT AUTO 1 % (0-2); EOSINOPHILS ABSOLUTE AUTO 0.13 K/mm3 (0.00-0.68); EOSINOPHILS PERCENT AUTO 2 % (0-6); Hemoglobin 12.9 g/dL (11.5-16.0); IMMATURE GRAN ABSOLUTE AUTO 0.03 K/mm3 (0.00-0.10); IMMATURE GRAN PERCENT AUTO 0 % (0-1); LYMPHOCYTES ABSOLUTE AUTO 0.89 K/mm3 (0.84-5.20); LYMPHOCYTES PERCENT AUTO 12 % (21-46); MONOCYTES ABSOLUTE AUTO 0.71 K/mm3 (0.16-1.47); MONOCYTES PERCENT AUTO 10 % (4-13); Mean Corpuscular HGB 30.1 pg (26.0-34.0); Mean Corpuscular HGB Conc 33.1 g/dL (31.5-36.5); Mean Corpuscular Volume 91 fL (80-100); Mean Platelet Volume 10.7 fL (9.1-12.4); NEUTROPHILS ABSOLUTE AUTO 5.39 K/mm3 (1.96-9.15); NEUTROPHILS PERCENT AUTO 75 % (41-73); Platelet Count 323 K/mm3 (150-400); RDW Coefficient Variation 14.2 % (11.7-14.2); RDW Standard Deviation 46.9 fL (35.1-46.3); Red Blood Cell Count 4.29 M/mm3 (3.80-5.20); White Blood Cell Count 7.19 K/mm3 (4.00-11.30)
[2022-06-06 00:33] LABS: Albumin, Blood 3.7 g/dL (3.4-5.0); Albumin/Globulin Ratio 0.9 (0.8-1.8); Bilirubin, Total 0.3 mg/dL (0.1-1.0); Bun/Creatinine Ratio 12.8 (12.0-20.0); Creatinine, Blood 1.09 mg/dL (0.40-1.00); Globulin, Blood 3.9 g/dL (2.2-4.0); Potassium, Blood 3.5 mmol/L (3.5-5.5); Total Protein, Blood 7.6 g/dL (6.4-8.2)
[2022-06-06 00:54] LABS: International Normalized Ratio 2.08
--- NOTE | 2022-06-06 03:34 | NUR ---
PATIENT IS A NEW ADMIT FROM THE ED. AXOX 4 AND SELF TRANSFER FROM [facility] TO BED. DENIES CHEST PAIN, SOB, AND N/V. NITRO PATCH ON CHEST IN PLACE FROM ED. ROOM AIR. ORIENTED TO ROOM AND CALL LIGHT. REPORTS WANTS TO SLEEP AFTER ASSESSMENT. PENDING STRESS TEST TODAY. NO CAFFEINE. NPO FOUR HOURS PRIOR TO PROCEDURE. WCTM.
[2022-06-06 04:13] LABS: BASOPHILS ABSOLUTE AUTO 0.04 K/mm3 (0.00-0.23); BASOPHILS PERCENT AUTO 1 % (0-2); EOSINOPHILS PERCENT AUTO 1 % (0-6); Hematocrit 37.1 % (33.0-51.0); Hemoglobin 12.4 g/dL (11.5-16.0); IMMATURE GRAN ABSOLUTE AUTO 0.02 K/mm3 (0.00-0.10); IMMATURE GRAN PERCENT AUTO 0 % (0-1); LYMPHOCYTES ABSOLUTE AUTO 1.24 K/mm3 (0.84-5.20); LYMPHOCYTES PERCENT AUTO 18 % (21-46); MONOCYTES ABSOLUTE AUTO 0.76 K/mm3 (0.16-1.47); MONOCYTES PERCENT AUTO 11 % (4-13); Mean Corpuscular HGB 29.9 pg (26.0-34.0); Mean Corpuscular HGB Conc 33.4 g/dL (31.5-36.5); Mean Corpuscular Volume 89 fL (80-100); Mean Platelet Volume 10.6 fL (9.1-12.4); NEUTROPHILS ABSOLUTE AUTO 4.74 K/mm3 (1.96-9.15); NEUTROPHILS PERCENT AUTO 69 % (41-73); Platelet Count 298 K/mm3 (150-400); RDW Coefficient Variation 14.1 % (11.7-14.2); RDW Standard Deviation 46.2 fL (35.1-46.3); Red Blood Cell Count 4.15 M/mm3 (3.80-5.20)
--- NOTE | 2022-06-06 04:42 | NUR ---
SHELLFISH CHECKER REPORTED ST ELEVATION. ASYMPTOMATIC DENIES CHEST PAIN. HOSPITALIST DR GUERRA NOTIFIED AND REPORTS CONTINUE TO MONITOR.
[2022-06-06 05:02] LABS: Anion Gap 5 mmol/L (6-16); Blood Urea Nitrogen 13 mg/dL (8-24); Bun/Creatinine Ratio 12.7 (12.0-20.0); CO2, Blood 26 mmol/L (21-32); Calcium, Blood 9.2 mg/dL (8.5-10.1); Chloride, Blood 109 mmol/L (98-108); Cholesterol 134 mg/dL (50-200); Creatinine, Blood 1.02 mg/dL (0.40-1.00); Glomerular Filtration Rate 56 (60-); Glucose, Blood 117 mg/dL (70-99); Magnesium, Blood 2.1 mg/dL (1.6-2.4); Potassium, Blood 3.5 mmol/L (3.5-5.5); Sodium, Blood 140 mmol/L (136-145); Triglycerides 51 mg/dL (30-160)
--- NOTE | 2022-06-06 05:20 | NUR ---
CARDIOLOGY CONSULT CALLED INTO ANSWERING SERVICE. DR WHITMORE. TROPONIN [address] GUERRA NOTIFIED AND ORDERED ANOTHER TROPONIN LAB.
[2022-06-06] MEDS ORDERED: METO25ER PO (08:33)
--- NOTE | 2022-06-06 09:52 | NUR ---
[facility] TELE NOTIFIED THIS RN OF [facility]. DR. CARRANZA NOTIFED AND THIS WAS ONGOING OVERNIGHT WELL. PT DENIES CP AT THIS TIME. MESSAGE LEFT FOR DR. WHITMORE ABOUT EVENTS.
--- NOTE | 2022-06-06 16:57 | NUR ---
SHIFT SUMMARY PT A&OX4. IND IN ROOM. MEDICATED FOR NAUSEA ONCE THIS SHIFT IN THE MORNING. DENIES CP T/O SHIFT. [facility] ELEVATION SEEN BY RESEARCH PHYSIOLOGIST THIS AM. STRIPS IN CHART AND EVENT RELAYED TO DR. CARRILLO AND DR. WHITMORE. NO GROWTH ON ST SINCE PER RESEARCH PHYSIOLOGIST. NPO AT MIDNIGHT FOR ANGIO TOMORROW. NO ACUTE CHANGES IN ASSESSMENT AT THIS TIME. PT REQUESTING ONLY 6.25 MG OF COREG THIS AFTERNOON, SINCE IN THE PAST SHE HAS GOTTEN DIZZY FROM THIS MEDICATION. CALL LIGHT IN REACH. DENIES OTHER NEEDS AT THIS TIME. VS REVIEWED.
[2022-06-07 05:49] LABS: Hematocrit 37.4 % (33.0-51.0); Hemoglobin 12.4 g/dL (11.5-16.0); Mean Corpuscular HGB 29.9 pg (26.0-34.0); Mean Corpuscular HGB Conc 33.2 g/dL (31.5-36.5); Mean Corpuscular Volume 90 fL (80-100); Mean Platelet Volume 10.7 fL (9.1-12.4); Platelet Count 312 K/mm3 (150-400); RDW Coefficient Variation 14.6 % (11.7-14.2); RDW Standard Deviation 47.6 fL (35.1-46.3); Red Blood Cell Count 4.15 M/mm3 (3.80-5.20); White Blood Cell Count 5.59 K/mm3 (4.00-11.30)
--- NOTE | 2022-06-07 05:50 | NUR ---
SUMMARY: PT A/OX4, INDEPENDENT IN ROOM AND IS PLEASANT AND COOPERATIVE W/CARE. SHE DENIED CP AND ALL OTHER S/S CARDIAC DISTRESS. PT REMAINS ON TELEMETRY IN NSR W/BBB AT 60'S-70'S BPM. SHE WAS MADE NPO AT MIDNIGHT FOR ANGIO TODAY. SHE HAD X1 EPISODE NAUSEA SHE REPORTS OCCURS WHEN TAKING MULTIPLE PILLS AT ONCE, ZOFRAN RECIEVED PRN FOR TOLERABLE RELIEF. NO ACUTE CHANGES, VSS/AFEBRILE. WCTM AND REPORT TO DAY RN.
[2022-06-07 06:03] LABS: International Normalized Ratio 1.84; Prothrombin Time Results 18.7 Sec (9.7-11.5)
[2022-06-07 06:13] LABS: Albumin, Blood 3.2 g/dL (3.4-5.0); Anion Gap 5 mmol/L (6-16); Blood Urea Nitrogen 15 mg/dL (8-24); Bun/Creatinine Ratio 13.8 (12.0-20.0); CO2, Blood 25 mmol/L (21-32); Calcium, Blood 9.1 mg/dL (8.5-10.1); Chloride, Blood 108 mmol/L (98-108); Creatinine, Blood 1.09 mg/dL (0.40-1.00); Glomerular Filtration Rate 52 (60-); Glucose, Blood 98 mg/dL (70-99); Phosphorus, Blood 2.8 mg/dL (2.5-4.9); Potassium, Blood 3.8 mmol/L (3.5-5.5); Sodium, Blood 138 mmol/L (136-145)
--- NOTE | 2022-06-07 10:30 | NUR ---
DIZZINESS PT REPORTED DIZZINESS WITH STANDING AND AMBULATING TO THE BATHROOM. SO DIZZY THAT THE PT BECAME SICK AND IS NOW NAUSEATED. PT STATES HE IS OFTEN VERY SENSITIVE TO MEDICATIONS AND THIS HAS HAPPENED BEFORE WITH HER HOME DOSE OF COREG. BP RECHECKED AND ORTHOSTATIC TAKEN WITH NO SIGNIFICANT. COCKTAIL SERVER REPORTED NO EVENTS. THIS WAS ALL RELAYED TO DR. CARRILLO WITH NO NEW ORDERS. PT ENCOURAGED TO CALL BEFORE GETTING UP SINCE SHE IS DIZZY TO PREVENT FALLING. PT AGREES TO THIS PLAN.
--- NOTE | 2022-06-07 13:39 | NUR ---
QT LENGTHENING. TELE REPORTED THAT QT HAD LENGTHENED FROM 0.[address] CARRILLO NOTIFED OF THIS AND PTS DIZZINESS/NAUSEA. ORDER TO CHECK MAG OBTAINED & ZOFRAN DCED AT THIS TIME. DR. CARDENAS ALSO NOTIFIED. ORDER FOR EGK TO CHECK QT INTERVAL ORDERED AND NORVASC/COREG DCED. TOPROL XL TO BE STARTED TOMORROW IN REPLACEMENT.
--- NOTE | 2022-06-07 17:09 | NUR ---
SHIFT SUMMARY PT NAUSEATED MOST OF THE DAY. TREATED WITH MANPREET CASSANDRA AND CRACKERS. MEDICATION CHANGES MADE BY DR. WHITMORE TO HELP WITH DIZZINESS. PT STATES SHE IS "FEELING BETTER". ANGIO RESCHEDULED FOR TOMORROW DUE TO INR LEVEL BEING TOO HIGH THIS AM. EKG COMPLETED AND ON CHART THIS SHIFT DUE TO QT INTERVAL LENGTHENING. NO OTHER ACUTE CHANGES IN ASSESSMENT AT THIS TIME. VS REVIEWED. CALL LIGHT IN REACH. DENIES OTHER NEEDS AT THIS TIME.
--- NOTE | 2022-06-08 05:50 | NUR ---
PT VERY PLEASANT AND CALLS FOR NEEDS. NPO SINCE MIDNIGHT WITH SIPS WITH AM MEDS.
[2022-06-08 07:04] LABS: Albumin, Blood 3.1 g/dL (3.4-5.0); Anion Gap 3 mmol/L (6-16); Blood Urea Nitrogen 13 mg/dL (8-24); Bun/Creatinine Ratio 12.6 (12.0-20.0); CO2, Blood 26 mmol/L (21-32); Calcium, Blood 8.9 mg/dL (8.5-10.1); Chloride, Blood 109 mmol/L (98-108); Creatinine, Blood 1.03 mg/dL (0.40-1.00); Glomerular Filtration Rate 56 (60-); Glucose, Blood 104 mg/dL (70-99); Phosphorus, Blood 2.8 mg/dL (2.5-4.9); Sodium, Blood 138 mmol/L (136-145)
[2022-06-08 07:30] LABS: International Normalized Ratio 1.67
--- NOTE | 2022-06-08 14:49 | NUR ---
Patient AOx4, independent in the room. NPO since midnight. Morning INR 1.6, notified cardiology, plan is to do angiogram today. Patient only took blood thinners this am, did not want to takes other meds on a empty stomach. Patient left for angiogram at 1230. Report given to PCU nurse.
--- NOTE | 2022-06-08 15:54 | NUR ---
Transfer to PCU. Post garage laborer. S/P angiogram with R Groin site. Site WNL. Soft and non tender. No signs of bleeding. Distal pedal pulses strong and equal. SCD's placed. Post vital signs stable. Tele showing sinus rhythm with HR 50-70's. Continues to deny chest pain/pressure. Pt bedrest and laying flat until 1800. Pt stated 4/10 pain related to headache. Tylenol given per EMAR. Re-checked pain level 30min later and stated pain level of 3/10. Lung sounds clear throughout on room air. Pt's daughter updated post procedure by Alize Arce RN.
--- NOTE | 2022-06-08 17:53 | NUR ---
Shift Summary: Received pt post angiogram via R groin. Site soft and nontender. Pt laid flat 4 hours post op per orders. Pedal pulses strong and equal. Pt HOB raised up 15 degrees at 1745. Complains of chronic back pain. Plan to get her up into recliner once safe to. Post angio vitals complete. Remains on room air sating above 95%. Eating dinner at this time. Call light within reach. Will report off to night supervisor.
--- NOTE | 2022-06-08 18:36 | NUR ---
THIS RN HAS REVIEWED AND AGREES WITH ALL SURVEY COMPILER DOCUMENTATION.
[2022-06-09 04:18] LABS: Anion Gap 4 mmol/L (6-16); Blood Urea Nitrogen 16 mg/dL (8-24); Bun/Creatinine Ratio 14.4 (12.0-20.0); CO2, Blood 25 mmol/L (21-32); Calcium, Blood 8.5 mg/dL (8.5-10.1); Chloride, Blood 110 mmol/L (98-108); Creatinine, Blood 1.11 mg/dL (0.40-1.00); Glomerular Filtration Rate 51 (60-); Glucose, Blood 105 mg/dL (70-99); Phosphorus, Blood 2.8 mg/dL (2.5-4.9); Potassium, Blood 3.9 mmol/L (3.5-5.5); Sodium, Blood 139 mmol/L (136-145)
--- NOTE | 2022-06-09 07:16 | NUR ---
SHIFT SUMMARY PATIENT ALERT AND ORIENTED X4. HAD NO COMPLAINTS OF PAIN OR SHORTNESS OF BREATH. NO BLEEDING OR BRUISING NOTED FROM R COLEEN ANGIO ACCESS SITE. VITAL SIGNS STABLE. LUNG SOUNDS CLEAR WITH SPO2 >90% ON ROOM AIR. HEART SINUS JOEL WITH PROLONGED QTc. NO ACUTE ISSUES NOTED OVERNIGHT. WILL CONTINUE TO MONITOR. CALL LIGHT WITHIN REACH.
--- NOTE | 2022-06-09 08:38 | NUR ---
PATIENT UNABLE TO AFFORD ELIQUIS, DR. WHITMORE CALLED BY THIS RN. OKAY TO SWITCH BACK TO COUMADIN WITH HOSP ORDERS. SPOKE WITH DR. WU. PLAN FOR PHARMACY WARFARIN CONSULT. THIS RN SPOKE WITH RYAN FROM PHARMACY.
--- NOTE | 2022-06-09 09:22 | NUR ---
AM NOTE: PATIENT ALERT AND ORIENTED X 4. PLEASANT AND COOPERATIVE WITH CARE. UP AD BOGDAN WITH NURSING STAND BY ASSIST. SURGICAL SITE OF R GROIN IS SOFT AND NONTENDER. NO SIGNS OF BLEEDING. PEDAL PULSES STRONG AND EQUAL. LUNG SOUNDS CLEAR THROUGHOUT ON ROOM AIR. SINUS RHYTHM IN THE 60'S. PT RESTING IN BED AFTER EATING BREAKFAST.
[2022-06-09] MEDS ORDERED: METO25ER PO (09:44)
--- NOTE | 2022-06-09 10:24 | NUR ---
PROGRESS NOTE: AROUND 9:30-9:45 PT SAT UP IN BED THEN LAID BACK DOWN AND FELT DIZZY/LIGHTHEADED. VITALS WERE STABLE. SX RESOLVED WITHIN 10 MIN. TOOK PT FOR WALK AROUND THE NURSES STATION WITH GRACIELA DIMAS RN. PT DENIED DIZZINESS DURING WALK. PT STATED SHE FELT MUCH BETTER AFTER WALK. SITTING UP IN RECLINER AND DENIES NEEDS AT THIS TIME.
[2022-06-09] MEDS ORDERED: LOSA25 PO (11:40)
--- NOTE | 2022-06-09 12:41 | NUR ---
DISCHARGE NOTE: PT WAS EDUCATED ON NEW MEDICATIONDS,NEW DOSAGES, & NEW TIMES FOR TAKING MEDICATIONS. SHE WAS PROVIDED PRINTED HANDOUTS ON NEW MEDICATIONS. PT STATED SHE UNDERSTOOD ALL NEW DIRECTIONS AND REASONS FOR ADDING NEW MEDICATIONS. PT WAS EDUCATED ON HOW TO CARE FOR SURGICAL SITE FROM ANGIO WITH RIGHT FEMORAL ACCESS. SHE WAS EDUCATED TO REFRAIN FROM ANY RIGOROUS ACTIVITY. REFRAIN FROM SUBMERGING SITE IN WATER/HOT TUB/SWIMMING. SHOWERS ARE OK. NO RUBBING THE SITE. PT EDUCATED TO WATCH FOR REDNESS, SWELLING, AND DISCHARGE FROM SITE AND TO CONTACT PROVIDER IF ANY S/SX OF INFECTION ARISE. PT EDUCATED TO CALL 911 IF SWELLING/DEVELOPMENT OF HEMATOMA/OR IF BLEEDING OCCURS FROM SITE. PT ADVISED TO PUT PRESSURE ON SITE IF BLEEDING OCCURS. VITAL SIGNS AND SITE WNL PRIOR TO DISCHARGE. PT VERBALIZED UNDERSTANDING OF FOLLOW UP APPOINTMENTS WITH CARDIOLOGY AND PCP. CARDIOLOGY OFFICE TO CALL PT AND SCHEDULE. PT TO TOPPIECE CHOPPER MEDICATIONS FROM [facility]. SON IN TO PICK PT UP. PT LEFT UNIT VIA WHEELCHAR WITH ALL PERSONAL BELONGINGS.
== END 2022-06-09 12:45 | disposition home or self-care (01) | DRG 281 ==
LOC: ER 23:42 → MEDS 23:43 → PCU 06-08 13:31
PROVIDERS: Emergency Medicine; Internal Medicine; Internal Medicine Cardiovascular Disease; ADMIT Student in an Organized Health Care Education/Training Program
PROC: 4A023N7 Measurement of Cardiac Sampling and Pressure, Left Heart, Percutaneous Approach (ICD-10-PCS; principal; 2022-06-08)
PROC: B211YZZ Fluoroscopy of Multiple Coronary Arteries using Other Contrast (ICD-10-PCS; 2022-06-08)
PROC: 4A033BC Measurement of Arterial Pressure, Coronary, Percutaneous Approach (ICD-10-PCS; 2022-06-08)
PROC: B218YZZ Fluoroscopy of Left Internal Mammary Bypass Graft using Other Contrast (ICD-10-PCS; 2022-06-08)
PROC: B213YZZ Fluoroscopy of Multiple Coronary Artery Bypass Grafts using Other Contrast (ICD-10-PCS; 2022-06-08)
DX: I21.4 Non-ST elevation (NSTEMI) myocardial infarction (principal); I25.810 Atherosclerosis of coronary artery bypass graft(s) without angina pectoris; I48.20 Chronic atrial fibrillation, unspecified; Z28.21 Immunization not carried out because of patient refusal; E78.5 Hyperlipidemia, unspecified; E03.9 Hypothyroidism, unspecified; K21.9 Gastro-esophageal reflux disease without esophagitis; I12.9 Hypertensive chronic kidney disease with stage 1 through stage 4 chronic kidney disease, or unspecified chronic kidney disease; I25.5 Ischemic cardiomyopathy; N18.30 Chronic kidney disease, stage 3 unspecified; I34.1 Nonrheumatic mitral (valve) prolapse; Z87.891 Personal history of nicotine dependence; Z87.440 Personal history of urinary (tract) infections; Z90.49 Acquired absence of other specified parts of digestive tract; Z90.710 Acquired absence of both cervix and uterus; Z95.1 Presence of aortocoronary bypass graft; Z98.890 Other specified postprocedural states; Z90.89 Acquired absence of other organs; Z88.1 Allergy status to other antibiotic agents; Z88.5 Allergy status to narcotic agent; Z88.8 Allergy status to other drugs, medicaments and biological substances; Z79.01 Long term (current) use of anticoagulants; Z79.890 Hormone replacement therapy; Z79.82 Long term (current) use of aspirin; Z79.899 Other long term (current) drug therapy
CPT/HCPCS: 36415; 71045; 76937; 80048; 80053; 80069; 82465; 83735; 84443; 84478; 84484; 85025; 85027; 85610; 86850; 86900; 86901; 93005; 93010; 93459; 96374; 99152; 99153; 99285-25; A9270; C1760; C1769; C1894; C8929; G0378; J1644; J2250; J2405; J3010; J7030; J7050; Q9957; Q9967

== ENCOUNTER → 2022-06-27 | Outpatient (CLI) | payer MEDICARE, OTHER ==
[~2022-06-27] MED LIST changes: +LOSA25 PO; +METO25ER PO
== END | disposition home or self-care (01) ==
LOC: LAB SHORT 18:52 → LAB 18:52
DX: N39.0 Urinary tract infection, site not specified (principal)
CPT/HCPCS: 87077; 87086; 87186

== ENCOUNTER → 2022-07-12 | Outpatient (CLI) | payer MEDICARE, OTHER | END | disposition home or self-care (01) | LOC: LAB 18:21 → LAB SHORT 18:21 | DX: N39.0 Urinary tract infection, site not specified (principal) | CPT/HCPCS: 87077; 87086; 87186 ==

== ENCOUNTER 2022-09-20 16:38 | Emergency (ER) | payer MEDICARE, OTHER ==
[~2022-09-20] VITALS: Ht 165.1 cm; Wt 61.2 kg
[2022-09-20 17:55] LABS: BASOPHILS ABSOLUTE AUTO 0.02 K/mm3 (0.00-0.23); BASOPHILS PERCENT AUTO 0 % (0-2); EOSINOPHILS PERCENT AUTO 2 % (0-6); Hematocrit 40.3 % (33.0-51.0); Hemoglobin 13.4 g/dL (11.5-16.0); IMMATURE GRAN ABSOLUTE AUTO 0.02 K/mm3 (0.00-0.10); IMMATURE GRAN PERCENT AUTO 0 % (0-1); LYMPHOCYTES ABSOLUTE AUTO 0.66 K/mm3 (0.84-5.20); LYMPHOCYTES PERCENT AUTO 11 % (21-46); MONOCYTES ABSOLUTE AUTO 0.61 K/mm3 (0.16-1.47); MONOCYTES PERCENT AUTO 10 % (4-13); Mean Corpuscular HGB 30.2 pg (26.0-34.0); Mean Corpuscular HGB Conc 33.3 g/dL (31.5-36.5); Mean Corpuscular Volume 91 fL (80-100); Mean Platelet Volume 10.6 fL (9.1-12.4); NEUTROPHILS ABSOLUTE AUTO 4.63 K/mm3 (1.96-9.15); NEUTROPHILS PERCENT AUTO 77 % (41-73); Platelet Count 369 K/mm3 (150-400); RDW Coefficient Variation 13.2 % (11.7-14.2); RDW Standard Deviation 44.4 fL (35.1-46.3); Red Blood Cell Count 4.43 M/mm3 (3.80-5.20); White Blood Cell Count 6.04 K/mm3 (4.00-11.30)
[2022-09-20 18:07] LABS: Albumin, Blood 3.7 g/dL (3.4-5.0); Albumin/Globulin Ratio 0.9 (0.8-1.8); Bilirubin, Total 0.3 mg/dL (0.1-1.0); Bun/Creatinine Ratio 11.2 (12.0-20.0); Calcium, Blood 10.1 mg/dL (8.5-10.1); Creatinine, Blood 1.16 mg/dL (0.40-1.00); Total Protein, Blood 7.7 g/dL (6.4-8.2)
[2022-09-20 18:25] LABS: Magnesium, Blood 2.1 mg/dL (1.6-2.4)
[2022-09-20 18:26] LABS: Thyroid Stimulating Hormone 3.28 uIU/mL (0.360-4.800)
[2022-09-20 18:51] LABS: Base Excess Venous 3.3 mmol/L; Bicarbonate Venous 25.6 mmol/L (24.0-30.0); PCO2 Venous 52.9 mmHg (38-42); pH Blood Venous 7.35 (7.34-7.37)
[2022-09-20 19:29] LABS: International Normalized Ratio 1.72; Prothrombin Time Results 17.5 Sec (9.7-11.5)
[2022-09-20] MEDS ORDERED: BRILINTA90 M7 PO (19:55)
[2022-09-20] MEDS ORDERED: NITROGLYCERIN0.4 M3 SL (19:55)
[2022-09-20] MEDS ORDERED: LOSA50 PO (19:56)
[2022-09-20 20:25] VITALS: BP 155/68
== END 2022-09-20 20:25 | disposition short-term general hospital (02) ==
LOC: ER 16:38
PROVIDERS: Student in an Organized Health Care Education/Training Program
DX: I62.01 Nontraumatic acute subdural hemorrhage (principal); I62.03 Nontraumatic chronic subdural hemorrhage; I10 Essential (primary) hypertension; R41.0 Disorientation, unspecified; Z88.8 Allergy status to other drugs, medicaments and biological substances; Z88.5 Allergy status to narcotic agent; Z88.1 Allergy status to other antibiotic agents; Z88.2 Allergy status to sulfonamides; Z88.0 Allergy status to penicillin; Z79.899 Other long term (current) drug therapy; Z79.01 Long term (current) use of anticoagulants; Z79.82 Long term (current) use of aspirin; N18.9 Chronic kidney disease, unspecified; D63.1 Anemia in chronic kidney disease; I12.9 Hypertensive chronic kidney disease with stage 1 through stage 4 chronic kidney disease, or unspecified chronic kidney disease; E03.9 Hypothyroidism, unspecified; I25.10 Atherosclerotic heart disease of native coronary artery without angina pectoris
CPT/HCPCS: 36430; 70450; 71046; 80053; 82803; 83605; 83735; 84443; 84484; 85025; 85610; 86900; 86901; 93005; 93010; 96365; 96368; 96375; 99291-25; J3430; J7030; J7050; J7168

== ENCOUNTER → 2022-11-15 | Outpatient (CLI) | payer MEDICARE, OTHER ==
[~2022-11-15] MED LIST changes: +BRILINTA90 M7 PO; +LOSA50 PO; +NITROGLYCERIN0.4 M3 SL
== END | disposition home or self-care (01) ==
LOC: LAB 14:02 → LAB SHORT 14:02
DX: N39.0 Urinary tract infection, site not specified (principal)
CPT/HCPCS: 87077; 87086; 87186

== ENCOUNTER → 2023-02-13 | Outpatient (CLI) | payer MEDICARE, OTHER | END | disposition home or self-care (01) | LOC: LAB SHORT 17:54 → LAB 17:54 | DX: R35.0 Frequency of micturition (principal) | CPT/HCPCS: 87086 ==

== ENCOUNTER → 2023-04-19 | Outpatient (CLI) | payer MEDICARE, OTHER | END | disposition home or self-care (01) | LOC: LAB SHORT 16:27 → LAB 16:27 | DX: N39.0 Urinary tract infection, site not specified (principal) | CPT/HCPCS: 87077; 87086; 87186 ==

== ENCOUNTER → 2023-09-18 | Outpatient (CLI) | payer MEDICARE, OTHER | LOC: LAB SHORT 17:28 → LAB 17:28 | DX: N30.01 Acute cystitis with hematuria (principal) | CPT/HCPCS: 87077; 87086; 87186 ==

== ENCOUNTER 2023-10-16 14:31 | Inpatient (IN) | payer MEDICARE, OTHER ==
[~2023-10-16] VITALS: Ht 165.1 cm; Wt 61.3 kg
[2023-10-16 14:49] LABS: BASOPHILS ABSOLUTE AUTO 0.04 K/mm3 (0.00-0.23); BASOPHILS PERCENT AUTO 1 % (0-2); EOSINOPHILS ABSOLUTE AUTO 0.18 K/mm3 (0.00-0.68); EOSINOPHILS PERCENT AUTO 3 % (0-6); Hematocrit 39.6 % (33.0-51.0); Hemoglobin 13.1 g/dL (11.5-16.0); IMMATURE GRAN ABSOLUTE AUTO 0.02 K/mm3 (0.00-0.10); IMMATURE GRAN PERCENT AUTO 0 % (0-1); LYMPHOCYTES ABSOLUTE AUTO 1.32 K/mm3 (0.84-5.20); LYMPHOCYTES PERCENT AUTO 18 % (21-46); MONOCYTES ABSOLUTE AUTO 0.88 K/mm3 (0.16-1.47); MONOCYTES PERCENT AUTO 12 % (4-13); Mean Corpuscular HGB 30.5 pg (26.0-34.0); Mean Corpuscular HGB Conc 33.1 g/dL (31.5-36.5); Mean Corpuscular Volume 92 fL (80-100); Mean Platelet Volume 9.8 fL (9.1-12.4); NEUTROPHILS PERCENT AUTO 66 % (41-73); Platelet Count 365 K/mm3 (150-400); RDW Coefficient Variation 12.8 % (11.7-14.2); RDW Standard Deviation 42.5 fL (35.1-46.3); White Blood Cell Count 7.24 K/mm3 (4.00-11.30)
[2023-10-16] MEDS ORDERED: Mag Hydrox/AL Hydrox/Simeth 30 ML UDC PO ONE (15:40)
[2023-10-16] MEDS ORDERED: Lidocaine 2% Viscous Soln 15 ML UDC PO ONE (15:40)
[2023-10-16] MEDS ORDERED: Nitroglycerin 0.4 MG SUBL SL PRN ×2 (15:40→19:05)
[2023-10-16 16:25] LABS: Albumin, Blood 2.7 g/dL (3.4-5.0); Albumin/Globulin Ratio 0.8 (0.8-1.8); Bilirubin, Total 0.3 mg/dL (0.1-1.0); Bun/Creatinine Ratio 12.5 (12.0-20.0); Calcium, Blood 7.9 mg/dL (8.5-10.1); Creatinine, Blood 0.8 mg/dL (0.40-1.00); Globulin, Blood 3.3 g/dL (2.2-4.0); Potassium, Blood 3.6 mmol/L (3.5-5.5)
[2023-10-16 18:26] LABS: International Normalized Ratio 0.96; Prothrombin Time Results 10.3 Sec (9.7-11.5)
[2023-10-16] MEDS ORDERED: Aspirin 325 MG Tab PO ONE (19:05)
[2023-10-16] MEDS ORDERED: Mag Hydrox/AL Hydrox/Simeth 30 ML UDC PO PRN (19:20)
[2023-10-16] MEDS ORDERED: HydrALAZINE HCl 20 MG / ML 1ML Vial IV PRN (19:30)
[2023-10-16 20:41] LABS: CHOL/HDL RATIO 2.4; Cholesterol 140 mg/dL (50-200); HDL Cholesterol 59 mg/dL (>39); LDL/HDL RATIO 1.2; Low Density Lipoprotein Chol 72 mg/dL (0-110); Triglycerides 46 mg/dL (30-160); Very Low Density Lipoprot Chol 9 mg/dL (6-32)
[2023-10-17 04:49] LABS: BASOPHILS ABSOLUTE AUTO 0.04 K/mm3 (0.00-0.23); BASOPHILS PERCENT AUTO 1 % (0-2); EOSINOPHILS ABSOLUTE AUTO 0.21 K/mm3 (0.00-0.68); EOSINOPHILS PERCENT AUTO 3 % (0-6); Hematocrit 36.1 % (33.0-51.0); Hemoglobin 12.1 g/dL (11.5-16.0); IMMATURE GRAN ABSOLUTE AUTO 0.01 K/mm3 (0.00-0.10); IMMATURE GRAN PERCENT AUTO 0 % (0-1); LYMPHOCYTES ABSOLUTE AUTO 1.43 K/mm3 (0.84-5.20); LYMPHOCYTES PERCENT AUTO 22 % (21-46); MONOCYTES PERCENT AUTO 11 % (4-13); Mean Corpuscular HGB 30.6 pg (26.0-34.0); Mean Corpuscular HGB Conc 33.5 g/dL (31.5-36.5); Mean Corpuscular Volume 91 fL (80-100); Mean Platelet Volume 10.4 fL (9.1-12.4); NEUTROPHILS ABSOLUTE AUTO 4.25 K/mm3 (1.96-9.15); NEUTROPHILS PERCENT AUTO 64 % (41-73); Platelet Count 388 K/mm3 (150-400); RDW Coefficient Variation 12.8 % (11.7-14.2); Red Blood Cell Count 3.96 M/mm3 (3.80-5.20); White Blood Cell Count 6.64 K/mm3 (4.00-11.30)
[2023-10-17 05:06] LABS: Bun/Creatinine Ratio 11.9 (12.0-20.0); Calcium, Blood 8.9 mg/dL (8.5-10.1); Creatinine, Blood 0.93 mg/dL (0.40-1.00); Potassium, Blood 4.3 mmol/L (3.5-5.5)
[2023-10-17] MEDS ORDERED: Omeprazole 20 MG CapCR PO SCH (06:00)
[2023-10-17] MEDS ORDERED: ASPI81CH PO (07:36)
[2023-10-17] MEDS ORDERED: BUPR75 PO (07:37)
[2023-10-17] MEDS ORDERED: EZET10 PO (07:38)
[2023-10-17] MEDS ORDERED: FAMO20 PO (07:39)
[2023-10-17] MEDS ORDERED: ISOSORBIDE MONO60 MG PO (07:40)
[2023-10-17] MEDS ORDERED: EUTHYROX25 MCG PO (07:41)
[2023-10-17] MEDS ORDERED: LOSA25 PO (07:42)
[2023-10-17] MEDS ORDERED: METO25ER PO (07:43)
[2023-10-17] MEDS ORDERED: NITR.4SL SL (07:44)
[2023-10-17] MEDS ORDERED: PANT40 PO (07:45)
[2023-10-17] MEDS ORDERED: PRAVASTATIN SOD10 M1 PO (07:46)
[2023-10-17] MEDS ORDERED: Losartan Potassium 25 MG Tab PO SCH (09:00)
[2023-10-17] MEDS ORDERED: Pravastatin Sodium 20 MG Tab PO SCH (09:00)
[2023-10-17] MEDS ORDERED: Ezetimibe 10 MG Tab PO SCH (09:00)
[2023-10-17] MEDS ORDERED: Aspirin 81 MG Chew PO SCH (09:00)
[2023-10-17] MEDS ORDERED: Metoprolol Succinate 25 MG TABCR PO SCH (09:00)
[2023-10-17] MEDS ORDERED: Famotidine 20 MG Tab PO SCH (09:00)
[2023-10-17] MEDS ORDERED: Enoxaparin 40 MG/0.4 ML SYR SC SCH (09:00)
[2023-10-17] MEDS ORDERED: Furosemide 10 MG/ML 4ML Vial IV SCH (09:00)
[2023-10-17] MEDS ORDERED: BuPROPion HCl 75 MG Tab PO SCH (09:00)
[2023-10-17] MEDS ORDERED: VITAMIN D310 MC4 PO (12:38)
[2023-10-17 12:46] VITALS: BP 130/100
--- NOTE | 2023-10-17 15:14 | NUR ---
"Spiritual Care | Pt. Request Pt. is awake in bed and welcomes my visit. Pt. is very pleasant. facilitated a life review and in the process established rapport. Listened with interest and empathy. Pt. displays evidence of being very realistic about her health condition, but also seems to be at peace with her relationship to God. Considered matters of macario and belief, and shared a pastoral perspective. Prayed with Pt. Pt. verbalized gratitude for the spiritual care visit, and welcomed this classification case manager to return."
[2023-10-17 15:25] VITALS: BP 137/63
[2023-10-17] MEDS ORDERED: Carvedilol 6.25 MG Tab PO SCH (17:00)
[2023-10-17] MEDS ORDERED: Sacubitril/Valsartan 24 MG-26 MG Tab PO SCH (17:00)
--- NOTE | 2023-10-17 17:56 | NUR ---
ADMIT NOTE PT FROM ED. PT ORIENTED TO ROOM AND CALL LIGHT. PT ALERT, ORIENTED X4; CALM AND COOPERATIVE WITH CARE. PT RESTING IN BED. UP WITH SBA TO BATHROOM. PT DENIES PAIN, CHEST PAIN/PRESSURE,SOB, NAUSEA, DIZZINESS AND NUMB/TINGLING. TELE SINUS WITH BBB; BP STABLE; STARTED NEW MEDICATIONS PER ORDERS. SPO2 >90% ON RA, BREATHING EVEN AND UNLABORED, LS CLEAR. ABD SOFT, NONTENDED, +BT T/O. NO EDEMA NOTED. OTHER VSS. NO OTHER ACUTE CHANGES NOTED. WILL CONTINUE TO MONITOR. ECHO COMPLETED DURING SHIFT.
[2023-10-17 20:00] VITALS: BP 128/54
[2023-10-18 00:06] VITALS: BP 126/54
[2023-10-18 04:27] VITALS: BP 121/51
[2023-10-18 04:30] LABS: BASOPHILS ABSOLUTE AUTO 0.03 K/mm3 (0.00-0.23); BASOPHILS PERCENT AUTO 1 % (0-2); EOSINOPHILS ABSOLUTE AUTO 0.22 K/mm3 (0.00-0.68); EOSINOPHILS PERCENT AUTO 4 % (0-6); Hemoglobin 13.8 g/dL (11.5-16.0); IMMATURE GRAN ABSOLUTE AUTO 0.03 K/mm3 (0.00-0.10); IMMATURE GRAN PERCENT AUTO 1 % (0-1); LYMPHOCYTES ABSOLUTE AUTO 1.26 K/mm3 (0.84-5.20); LYMPHOCYTES PERCENT AUTO 21 % (21-46); MONOCYTES ABSOLUTE AUTO 0.78 K/mm3 (0.16-1.47); MONOCYTES PERCENT AUTO 13 % (4-13); Mean Corpuscular HGB 30.3 pg (26.0-34.0); Mean Corpuscular HGB Conc 33.7 g/dL (31.5-36.5); Mean Corpuscular Volume 90 fL (80-100); Mean Platelet Volume 10.1 fL (9.1-12.4); NEUTROPHILS ABSOLUTE AUTO 3.57 K/mm3 (1.96-9.15); NEUTROPHILS PERCENT AUTO 61 % (41-73); Platelet Count 378 K/mm3 (150-400); RDW Coefficient Variation 12.8 % (11.7-14.2); RDW Standard Deviation 41.9 fL (35.1-46.3); Red Blood Cell Count 4.55 M/mm3 (3.80-5.20); White Blood Cell Count 5.89 K/mm3 (4.00-11.30)
[2023-10-18] MEDS ORDERED: Ondansetron HCl 2 MG / ML 2ML Vial IV PRN (04:30)
--- NOTE | 2023-10-18 04:48 | NUR ---
SHIFT SUMMARY. SHIFT HAS BEEN UNREMARKABLE. PT AOX4, PLEASANT, COOPERATIVE WITH CARE, CALLS APPROPRIATELY, ABLE TO MAKE NEEDS KNOWN. HAS BEEN ABLE TO REST COMFORTABLY THROUGHOUT MOST OF SHIFT. VITALS HAVE REMAINED STABLE. PT HAS CONTINUED TO DENY PAIN THROUGHOUT SHIFT. PT HAS BEEN NPO SINCE MIDNIGHT PENDING POSSIBLE STRESS TEST/ANGIO TODAY. CONTINUES TO RUN SINUS WITH BBB THROUGHOUT SHIFT. MAINTAINS ADEQUATE SATURATION ON ROOM AIR. INDEPENDENT WITHIN ROOM. BED LOCKED IN LOWEST POSITION. CALL LIGHT LEFT WTIHIN REACH. CONTINUING TO MONITOR.
[2023-10-18 04:56] LABS: Bun/Creatinine Ratio 15.7 (12.0-20.0); Calcium, Blood 8.8 mg/dL (8.5-10.1); Creatinine, Blood 1.15 mg/dL (0.40-1.00); Potassium, Blood 3.6 mmol/L (3.5-5.5)
[2023-10-18] MEDS ORDERED: Levothyroxine Sodium 0.025 MG Tab PO SCH (06:00)
--- NOTE | 2023-10-18 08:10 | NUR ---
AM ASSESSMENT: Pt resting in bed. States that she is feeling good this am so far. LS clear. HR reg. BT positive. Pulses palp. Denies numbness or tingling. VSS this am. Pt hopeful to discharge today but awaiting cone runner. Denies needs. Call light in reach.
[2023-10-18 08:13] VITALS: BP 120/55
[2023-10-18] MEDS ORDERED: CARV6.25 PO (10:08)
[2023-10-18] MEDS ORDERED: FURO40 PO (10:09)
[2023-10-18] MEDS ORDERED: ENTRESTO 24 MG1 EACH PO (10:10)
[2023-10-18] MEDS ORDERED: POTA10T PO (10:10)
[2023-10-18 10:54] VITALS: BP 126/54
--- NOTE | 2023-10-18 11:58 | NUR ---
Pt. is awake in bed and welcomes my visit. Pt. is very pleasant, and verbalizes that she is awaiting discharge. Facilitate a short update and prayed with the Pt. Pt. displayed evidence of being very encouraged by the prayer and the spiritual care visits.
--- NOTE | 2023-10-18 12:00 | NUR ---
PT DISCHARGED FROM PCU ROOM 8 AT 1200 WITH HER SON. FIRE ASSISTANT WHEELED PT TO PARKING LOT, PT HAS ALL BELONGINGS WITH HER AT THIS TIME. IN NO ACUTE DISTRESS. IV DCD AND WRAPPED. TELE REMOVED. DISCHARGE PACKET REVIEWED AND TAKEN WITH PT.
--- NOTE | 2023-10-18 12:08 | NUR ---
DISCHARGE: Patient was given verbal and written discharge instructions. Denies questions. [facility] IV was removed. Pt left via w/c with aide. Stable at discharge.
== END 2023-10-18 11:57 | disposition home or self-care (01) | DRG 313 ==
LOC: ER 14:31 → ERHOLD 14:32 → PCU 10-17 12:15
PROVIDERS: Emergency Medicine; Family Medicine; ADMIT Family Medicine
DX: R07.89 Other chest pain (principal); I13.0 Hypertensive heart and chronic kidney disease with heart failure and stage 1 through stage 4 chronic kidney disease, or unspecified chronic kidney disease; I50.22 Chronic systolic (congestive) heart failure; I16.1 Hypertensive emergency; I50.20 Unspecified systolic (congestive) heart failure; J81.1 Chronic pulmonary edema; N18.30 Chronic kidney disease, stage 3 unspecified; D63.1 Anemia in chronic kidney disease; I25.10 Atherosclerotic heart disease of native coronary artery without angina pectoris; E89.0 Postprocedural hypothyroidism; I25.5 Ischemic cardiomyopathy; I48.0 Paroxysmal atrial fibrillation; E87.5 Hyperkalemia; I44.7 Left bundle-branch block, unspecified; Z95.5 Presence of coronary angioplasty implant and graft; Z95.1 Presence of aortocoronary bypass graft; Z86.73 Personal history of transient ischemic attack (TIA), and cerebral infarction without residual deficits; Z87.19 Personal history of other diseases of the digestive system; Z90.49 Acquired absence of other specified parts of digestive tract; Z98.890 Other specified postprocedural states; Z88.8 Allergy status to other drugs, medicaments and biological substances; Z88.5 Allergy status to narcotic agent; Z88.1 Allergy status to other antibiotic agents; Z88.2 Allergy status to sulfonamides; Z88.0 Allergy status to penicillin; Z87.891 Personal history of nicotine dependence; Z79.01 Long term (current) use of anticoagulants; Z79.890 Hormone replacement therapy; I25.2 Old myocardial infarction; Z79.82 Long term (current) use of aspirin
CPT/HCPCS: 36415; 71045; 80048; 80053; 80061; 83880; 84484; 85025; 85610; 93005; 93010; 93306; 96372-59; 96374; 99285-25; A9270; G0378; J1650; J1940; J2405

== ENCOUNTER 2023-10-23 00:45 | Observation (INO) | payer MEDICARE, OTHER ==
[~2023-10-23] VITALS: Ht 167.6 cm; Wt 62.1 kg
[~2023-10-23 00:45] MED LIST changes: +CARV6.25 PO; +ENTRESTO 24 MG1 EACH PO; +EUTHYROX25 MCG PO; +EZET10 PO; +FURO40 PO; +ISOSORBIDE MONO60 MG PO; +POTA10T PO; +PRAVASTATIN SOD10 M1 PO; +VITAMIN D310 MC4 PO
[2023-10-23 01:05] LABS: BASOPHILS ABSOLUTE AUTO 0.05 K/mm3 (0.00-0.23); BASOPHILS PERCENT AUTO 1 % (0-2); EOSINOPHILS ABSOLUTE AUTO 0.26 K/mm3 (0.00-0.68); EOSINOPHILS PERCENT AUTO 4 % (0-6); Hematocrit 34.2 % (33.0-51.0); Hemoglobin 11.5 g/dL (11.5-16.0); IMMATURE GRAN ABSOLUTE AUTO 0.02 K/mm3 (0.00-0.10); IMMATURE GRAN PERCENT AUTO 0 % (0-1); LYMPHOCYTES ABSOLUTE AUTO 1.57 K/mm3 (0.84-5.20); LYMPHOCYTES PERCENT AUTO 23 % (21-46); MONOCYTES ABSOLUTE AUTO 0.77 K/mm3 (0.16-1.47); MONOCYTES PERCENT AUTO 11 % (4-13); Mean Corpuscular HGB 30.3 pg (26.0-34.0); Mean Corpuscular HGB Conc 33.6 g/dL (31.5-36.5); Mean Corpuscular Volume 90 fL (80-100); Mean Platelet Volume 10.1 fL (9.1-12.4); NEUTROPHILS ABSOLUTE AUTO 4.31 K/mm3 (1.96-9.15); NEUTROPHILS PERCENT AUTO 62 % (41-73); Platelet Count 346 K/mm3 (150-400); RDW Coefficient Variation 12.8 % (11.7-14.2); RDW Standard Deviation 42.1 fL (35.1-46.3); White Blood Cell Count 6.98 K/mm3 (4.00-11.30)
[2023-10-23] MEDS ORDERED: Ondansetron HCl 2 MG / ML 2ML Vial IV ONE (01:10)
[2023-10-23 01:22] LABS: Albumin, Blood 3.3 g/dL (3.4-5.0); Albumin/Globulin Ratio 0.9 (0.8-1.8); Bilirubin, Total 0.3 mg/dL (0.1-1.0); Bun/Creatinine Ratio 14.7 (12.0-20.0); Calcium, Blood 8.8 mg/dL (8.5-10.1); Creatinine, Blood 1.09 mg/dL (0.40-1.00); Globulin, Blood 3.6 g/dL (2.2-4.0); Potassium, Blood 4.4 mmol/L (3.5-5.5); Total Protein, Blood 6.9 g/dL (6.4-8.2)
[2023-10-23] MEDS ORDERED: Famotidine 10 MG/ML 2ML Vial IV ONE (01:45)
[2023-10-23] MEDS ORDERED: Mag Hydrox/AL Hydrox/Simeth 30 ML UDC PO ONE (01:45)
[2023-10-23] MEDS ORDERED: METOPROLOL SUCC25 MG PO (02:57)
[2023-10-23] MEDS ORDERED: Nitroglycerin 1 INCH/GM PKT TOP ONE (03:40)
[2023-10-23] MEDS ORDERED: Levothyroxine Sodium 0.025 MG Tab PO SCH (05:00)
[2023-10-23] MEDS ORDERED: Acetaminophen 325 MG TABLET PO PRN (05:05)
[2023-10-23] MEDS ORDERED: Pantoprazole Sodium 40 MG Tab PO SCH (06:00)
[2023-10-23] MEDS ORDERED: Morphine Sulfate 10 MG/ML 1MLSYR IV PRN (07:25)
[2023-10-23] MEDS ORDERED: Nitroglycerin 0.4 MG SUBL SL PRN (07:25)
[2023-10-23] MEDS ORDERED: Aspirin 81 MG Chew PO SCH (09:00)
[2023-10-23] MEDS ORDERED: Furosemide 40 MG Tab PO SCH (09:00)
[2023-10-23] MEDS ORDERED: Sacubitril/Valsartan 24 MG-26 MG Tab PO SCH (09:00)
[2023-10-23] MEDS ORDERED: Pravastatin Sodium 20 MG Tab PO SCH (09:00)
[2023-10-23] MEDS ORDERED: Isosorbide Mononitrate 60 MG TABCR PO SCH (09:00)
[2023-10-23] MEDS ORDERED: BuPROPion HCl 75 MG Tab PO SCH (09:00)
[2023-10-23] MEDS ORDERED: Cholecalciferol 400 unit Tab PO SCH (09:00)
[2023-10-23] MEDS ORDERED: Ezetimibe 10 MG Tab PO SCH (09:00)
[2023-10-23 09:30] VITALS: BP 145/74
[2023-10-24] MEDS ORDERED: Enoxaparin 40 MG/0.4 ML SYR SC SCH (09:00)
== END 2023-10-23 09:45 | disposition left against medical advice (07) ==
LOC: ER 00:45 → ERHOLD 00:46
PROVIDERS: Student in an Organized Health Care Education/Training Program; ADMIT Family Medicine
DX: I21.4 Non-ST elevation (NSTEMI) myocardial infarction (principal); I25.10 Atherosclerotic heart disease of native coronary artery without angina pectoris; K21.9 Gastro-esophageal reflux disease without esophagitis; F32.9 Major depressive disorder, single episode, unspecified; E78.5 Hyperlipidemia, unspecified; E03.9 Hypothyroidism, unspecified; I12.9 Hypertensive chronic kidney disease with stage 1 through stage 4 chronic kidney disease, or unspecified chronic kidney disease; N18.9 Chronic kidney disease, unspecified; I48.20 Chronic atrial fibrillation, unspecified; Z53.29 Procedure and treatment not carried out because of patient's decision for other reasons; Z79.82 Long term (current) use of aspirin; Z79.899 Other long term (current) drug therapy; Z88.0 Allergy status to penicillin; Z88.2 Allergy status to sulfonamides; Z88.5 Allergy status to narcotic agent; Z88.8 Allergy status to other drugs, medicaments and biological substances; Z95.1 Presence of aortocoronary bypass graft
CPT/HCPCS: 71046; 80053; 84484; 85025; 93005; 93010; 96374; 96375; 99285-25; A9270; G0378; J2270; J2405

== ENCOUNTER → 2024-03-16 | Outpatient (CLI) | payer MEDICARE, OTHER ==
[~2024-03-16] MED LIST changes: +METOPROLOL SUCC25 MG PO
== END | disposition home or self-care (01) ==
LOC: LAB SHORT 15:20 → LAB 15:20
DX: N39.0 Urinary tract infection, site not specified (principal)
CPT/HCPCS: 87077; 87086; 87186

== ENCOUNTER → 2024-04-22 | Outpatient (CLI) | payer MEDICARE, OTHER | LOC: LAB 12:08 → LAB SHORT 12:08 | DX: N39.0 Urinary tract infection, site not specified (principal) | CPT/HCPCS: 87077; 87086; 87186 ==

== ENCOUNTER → 2024-06-24 | Outpatient (CLI) | payer MEDICARE, OTHER | LOC: LAB SHORT 13:16 → LAB 13:16 | DX: R30.0 Dysuria (principal) | CPT/HCPCS: 87077; 87086; 87186 ==

== ENCOUNTER 2024-09-12 16:42 | Emergency (ER) | payer MEDICARE, OTHER ==
[~2024-09-12] VITALS: Ht 165.1 cm; Wt 65.8 kg
[~2024-09-12 16:42] MED LIST changes: +THERA-D2000 UNIT PO; -VITAMIN D310 MC4 PO
[2024-09-12 17:48] LABS: BASOPHILS ABSOLUTE AUTO 0.04 K/mm3 (0.00-0.23); BASOPHILS PERCENT AUTO 1 % (0-2); EOSINOPHILS ABSOLUTE AUTO 0.19 K/mm3 (0.00-0.68); EOSINOPHILS PERCENT AUTO 3 % (0-6); Hematocrit 33.3 % (33.0-51.0); Hemoglobin 10.9 g/dL (11.5-16.0); IMMATURE GRAN ABSOLUTE AUTO 0.03 K/mm3 (0.00-0.10); IMMATURE GRAN PERCENT AUTO 1 % (0-1); LYMPHOCYTES ABSOLUTE AUTO 1.18 K/mm3 (0.84-5.20); LYMPHOCYTES PERCENT AUTO 19 % (21-46); MONOCYTES ABSOLUTE AUTO 0.76 K/mm3 (0.16-1.47); MONOCYTES PERCENT AUTO 12 % (4-13); Mean Corpuscular HGB Conc 32.7 g/dL (31.5-36.5); Mean Corpuscular Volume 90 fL (80-100); NEUTROPHILS ABSOLUTE AUTO 3.99 K/mm3 (1.96-9.15); NEUTROPHILS PERCENT AUTO 64 % (41-73); NRBC ABSOLUTE 0.00 K/mm3 (0.00-0.02); NRBC Auto 0.0 /100 WBC (0.0-0.2); Platelet Count 365 K/mm3 (150-400); RDW Coefficient Variation 13.9 % (11.7-14.2); RDW Standard Deviation 45.5 fL (35.1-46.3)
[2024-09-12 17:56] LABS: Source, Urine Clean Catch
[2024-09-12 17:59] LABS: Bilirubin, Urine Neg (Neg); Glucose Qualitative, Urine Neg (Neg); Ketones, Urine Neg (Neg); Leukocyte Esterase, Urine Neg (Neg); Protein, Urine Neg (Neg); Specific Gravity, Urine 1.005 (1.003-1.022); Urobilinogen, Urine NORM (Normal)
[2024-09-12 18:13] LABS: Color, Urine Pale Yellow (P-Yellow)
[2024-09-12 18:18] LABS: Alanine Aminotransfer (ALT/SGP 15.0 U/L (12-78); Albumin, Blood 3.4 g/dL (3.4-5.0); Albumin/Globulin Ratio 0.8 (0.8-1.8); Anion Gap 9.0 mmol/L (3-11); Aspartate Aminotrans (AST/SGOT 14.0 U/L (12-37); Bilirubin, Total 0.3 mg/dL (0.1-1.0); Blood Urea Nitrogen 19.0 mg/dL (8-24); CO2, Blood 26.0 mmol/L (21-32); Calcium, Blood 9.8 mg/dL (8.5-10.1); Chloride, Blood 103.0 mmol/L (98-108); Creatinine, Blood 1.18 mg/dL (0.40-1.00); Globulin, Blood 4.3 g/dL (2.2-4.0); Glucose, Blood 92.0 mg/dL (70-99); Potassium, Blood 3.5 mmol/L (3.5-5.5); Sodium, Blood 134.0 mmol/L (136-145); Total Protein, Blood 7.7 g/dL (6.4-8.2)
[2024-09-12 18:58] VITALS: BP 178/43
[2024-09-15] MEDS ORDERED: ZOLOFT25 MG PO ×2 (06:45)
[2024-09-15] MEDS ORDERED: Amlodipine Bes2.5 MG PO ×2 (06:46)
[2024-09-15] MEDS ORDERED: FLUT.05NI ×2 (06:48)
[2024-09-15] MEDS ORDERED: FURO20 PO ×2 (08:35)
== END 2024-09-12 19:30 | disposition home or self-care (01) ==
LOC: ER 16:42
PROVIDERS: Physician Assistant
DX: R41.82 Altered mental status, unspecified (principal); R51.9 Headache, unspecified; E78.00 Pure hypercholesterolemia, unspecified; K21.9 Gastro-esophageal reflux disease without esophagitis; I25.2 Old myocardial infarction; Z86.73 Personal history of transient ischemic attack (TIA), and cerebral infarction without residual deficits; Z88.0 Allergy status to penicillin; Z88.5 Allergy status to narcotic agent; Z88.1 Allergy status to other antibiotic agents; Z88.8 Allergy status to other drugs, medicaments and biological substances; Z79.899 Other long term (current) drug therapy; Z79.82 Long term (current) use of aspirin
CPT/HCPCS: 70450; 80053; 81003; 85025; 99284-25

== ENCOUNTER 2024-09-15 01:23 | Inpatient (IN) | payer MEDICARE, OTHER ==
[~2024-09-15] VITALS: Ht 165.1 cm; Wt 67.1 kg
[2024-09-15 01:52] LABS: BASOPHILS ABSOLUTE AUTO 0.03 K/mm3 (0.00-0.23); BASOPHILS PERCENT AUTO 0 % (0-2); EOSINOPHILS ABSOLUTE AUTO 0.28 K/mm3 (0.00-0.68); EOSINOPHILS PERCENT AUTO 4 % (0-6); Hematocrit 30.2 % (33.0-51.0); Hemoglobin 10.2 g/dL (11.5-16.0); IMMATURE GRAN ABSOLUTE AUTO 0.02 K/mm3 (0.00-0.10); IMMATURE GRAN PERCENT AUTO 0 % (0-1); LYMPHOCYTES ABSOLUTE AUTO 1.52 K/mm3 (0.84-5.20); LYMPHOCYTES PERCENT AUTO 23 % (21-46); MONOCYTES ABSOLUTE AUTO 0.89 K/mm3 (0.16-1.47); MONOCYTES PERCENT AUTO 13 % (4-13); Mean Corpuscular HGB Conc 33.8 g/dL (31.5-36.5); Mean Corpuscular Volume 86 fL (80-100); NEUTROPHILS ABSOLUTE AUTO 3.93 K/mm3 (1.96-9.15); NEUTROPHILS PERCENT AUTO 59 % (41-73); NRBC ABSOLUTE 0.00 K/mm3 (0.00-0.02); NRBC Auto 0.0 /100 WBC (0.0-0.2); Platelet Count 369 K/mm3 (150-400); RDW Coefficient Variation 13.9 % (11.7-14.2); RDW Standard Deviation 43.8 fL (35.1-46.3)
[2024-09-15 02:09] LABS: Alanine Aminotransfer (ALT/SGP 15.0 U/L (12-78); Albumin, Blood 3.2 g/dL (3.4-5.0); Albumin/Globulin Ratio 0.8 (0.8-1.8); Anion Gap 8.0 mmol/L (3-11); Aspartate Aminotrans (AST/SGOT 29.0 U/L (12-37); Bilirubin, Total 0.2 mg/dL (0.1-1.0); Blood Urea Nitrogen 16.0 mg/dL (8-24); CO2, Blood 28.0 mmol/L (21-32); Calcium, Blood 9.5 mg/dL (8.5-10.1); Chloride, Blood 105.0 mmol/L (98-108); Creatinine, Blood 1.0 mg/dL (0.40-1.00); Globulin, Blood 4.0 g/dL (2.2-4.0); Glucose, Blood 100.0 mg/dL (70-99); Potassium, Blood 3.8 mmol/L (3.5-5.5); Sodium, Blood 137.0 mmol/L (136-145); Total Protein, Blood 7.2 g/dL (6.4-8.2)
[2024-09-15] MEDS ORDERED: Metoclopramide HCl 5MG / ML 2ML Vial IV ONE (03:00)
[2024-09-15] MEDS ORDERED: Ondansetron HCl 2 MG / ML 2ML Vial IV PRN (04:40)
[2024-09-15] MEDS ORDERED: NS 1,000 ML IV SCH (05:00)
[2024-09-15 06:23] LABS: BASOPHILS ABSOLUTE AUTO 0.03 K/mm3 (0.00-0.23); BASOPHILS PERCENT AUTO 0 % (0-2); EOSINOPHILS ABSOLUTE AUTO 0.12 K/mm3 (0.00-0.68); EOSINOPHILS PERCENT AUTO 2 % (0-6); Hematocrit 34.1 % (33.0-51.0); Hemoglobin 11.1 g/dL (11.5-16.0); IMMATURE GRAN ABSOLUTE AUTO 0.03 K/mm3 (0.00-0.10); IMMATURE GRAN PERCENT AUTO 0 % (0-1); LYMPHOCYTES ABSOLUTE AUTO 0.82 K/mm3 (0.84-5.20); LYMPHOCYTES PERCENT AUTO 12 % (21-46); MONOCYTES ABSOLUTE AUTO 0.44 K/mm3 (0.16-1.47); MONOCYTES PERCENT AUTO 6 % (4-13); Mean Corpuscular HGB Conc 32.6 g/dL (31.5-36.5); Mean Corpuscular Volume 88 fL (80-100); NEUTROPHILS ABSOLUTE AUTO 5.56 K/mm3 (1.96-9.15); NEUTROPHILS PERCENT AUTO 80 % (41-73); NRBC ABSOLUTE 0.00 K/mm3 (0.00-0.02); NRBC Auto 0.0 /100 WBC (0.0-0.2); Platelet Count 395 K/mm3 (150-400); RDW Coefficient Variation 14.0 % (11.7-14.2); RDW Standard Deviation 44.6 fL (35.1-46.3)
[2024-09-15 06:26] VITALS: BP 164/53
[2024-09-15] MEDS ORDERED: Morphine Sulfate 4 MG/1 ML Injection IV PRN (06:30)
[2024-09-15] MEDS ORDERED: ZOLOFT25 MG PO (06:45)
[2024-09-15] MEDS ORDERED: Amlodipine Bes2.5 MG PO (06:46)
[2024-09-15] MEDS ORDERED: FLUT.05NI (06:48)
[2024-09-15 06:49] LABS: Alanine Aminotransfer (ALT/SGP 14.0 U/L (12-78); Albumin, Blood 3.3 g/dL (3.4-5.0); Albumin/Globulin Ratio 0.8 (0.8-1.8); Anion Gap 6.0 mmol/L (3-11); Aspartate Aminotrans (AST/SGOT 20.0 U/L (12-37); Bilirubin, Total 0.2 mg/dL (0.1-1.0); Blood Urea Nitrogen 15.0 mg/dL (8-24); CO2, Blood 28.0 mmol/L (21-32); Calcium, Blood 9.8 mg/dL (8.5-10.1); Chloride, Blood 109.0 mmol/L (98-108); Creatinine, Blood 0.99 mg/dL (0.40-1.00); Globulin, Blood 4.3 g/dL (2.2-4.0); Glucose, Blood 124.0 mg/dL (70-99); Potassium, Blood 3.7 mmol/L (3.5-5.5); Sodium, Blood 139.0 mmol/L (136-145); Total Protein, Blood 7.6 g/dL (6.4-8.2)
[2024-09-15] MEDS ORDERED: Insulin Regular 100 UNIT/ML 10ML Vial SC SCH (07:30)
--- NOTE | 2024-09-15 07:30 | NUR ---
PT ARRIVED ALERT AND ORIENTED. NO C/O CHEST PAIN AND PRESSURE. NO DIZZINESS EITHER. CALL SALAZAR WITHIN REACH
[2024-09-15 08:06] VITALS: BP 172/72
[2024-09-15] MEDS ORDERED: FURO20 PO (08:35)
[2024-09-15] MEDS ORDERED: FAMO20 PO (08:37)
[2024-09-15] MEDS ORDERED: Enoxaparin 40 MG/0.4 ML SYR SC SCH (09:00)
[2024-09-15] MEDS ORDERED: Isosorbide Mononitrate 60 MG TABCR PO SCH (09:00)
--- NOTE | 2024-09-15 11:10 | NUR ---
Discharge note. Pt discharge home. Pt reports that CP has since resolved. VSS. Daughter to give Pt ride home. All questions were answered. Pt was escorted to the door by staff. All belongings taken with Pt.
== END 2024-09-15 11:03 | disposition home or self-care (01) | DRG 313 ==
LOC: ER 01:23 → PCU 04:35
PROVIDERS: Emergency Medicine; Student in an Organized Health Care Education/Training Program; ADMIT Internal Medicine
DX: R07.89 Other chest pain (principal); I13.0 Hypertensive heart and chronic kidney disease with heart failure and stage 1 through stage 4 chronic kidney disease, or unspecified chronic kidney disease; I48.20 Chronic atrial fibrillation, unspecified; I25.10 Atherosclerotic heart disease of native coronary artery without angina pectoris; N18.31 Chronic kidney disease, stage 3a; I50.9 Heart failure, unspecified; F32.A Depression, unspecified; M81.0 Age-related osteoporosis without current pathological fracture; E03.9 Hypothyroidism, unspecified; R79.1 Abnormal coagulation profile; I25.2 Old myocardial infarction; Z88.8 Allergy status to other drugs, medicaments and biological substances; Z88.5 Allergy status to narcotic agent; Z95.5 Presence of coronary angioplasty implant and graft; Z88.2 Allergy status to sulfonamides; Z88.0 Allergy status to penicillin; Z88.1 Allergy status to other antibiotic agents; Z79.82 Long term (current) use of aspirin; Z79.890 Hormone replacement therapy; Z86.73 Personal history of transient ischemic attack (TIA), and cerebral infarction without residual deficits; Z95.1 Presence of aortocoronary bypass graft; Z87.891 Personal history of nicotine dependence; Z60.2 Problems related to living alone; R41.82 Altered mental status, unspecified; R51.9 Headache, unspecified; E78.00 Pure hypercholesterolemia, unspecified; K21.9 Gastro-esophageal reflux disease without esophagitis; Z79.899 Other long term (current) drug therapy
CPT/HCPCS: 36415; 70450; 71045; 71260; 80053; 81003; 84443; 84484; 85025; 85379; 93005; 93010; 93306; 96374; 99284-25; 99285-25; A9270; J2765; Q9967

== ENCOUNTER → 2024-10-11 | Outpatient (CLI) | payer MEDICARE, OTHER ==
[~2024-10-11] MED LIST changes: +Amlodipine Bes2.5 MG PO; +FLUT.05NI; +FURO20 PO; +ZOLOFT25 MG PO
== END | disposition home or self-care (01) ==
LOC: LAB 17:49 → LAB SHORT 17:49
DX: N39.0 Urinary tract infection, site not specified (principal)
CPT/HCPCS: 87077; 87086; 87186

== ENCOUNTER → 2025-01-14 | Outpatient (CLI) | payer MEDICARE, OTHER ==
[2025-01-14 11:56] LABS: BASOPHILS ABSOLUTE AUTO 0.03 K/mm3 (0.00-0.23); BASOPHILS PERCENT AUTO 0 % (0-2); EOSINOPHILS ABSOLUTE AUTO 0.13 K/mm3 (0.00-0.68); EOSINOPHILS PERCENT AUTO 2 % (0-6); Hematocrit 34.8 % (33.0-51.0); Hemoglobin 11.6 g/dL (11.5-16.0); IMMATURE GRAN ABSOLUTE AUTO 0.02 K/mm3 (0.00-0.10); IMMATURE GRAN PERCENT AUTO 0 % (0-1); LYMPHOCYTES ABSOLUTE AUTO 0.75 K/mm3 (0.84-5.20); LYMPHOCYTES PERCENT AUTO 11 % (21-46); MONOCYTES ABSOLUTE AUTO 0.79 K/mm3 (0.16-1.47); MONOCYTES PERCENT AUTO 11 % (4-13); Mean Corpuscular HGB Conc 33.3 g/dL (31.5-36.5); Mean Corpuscular Volume 88 fL (80-100); NEUTROPHILS ABSOLUTE AUTO 5.24 K/mm3 (1.96-9.15); NEUTROPHILS PERCENT AUTO 75 % (41-73); NRBC ABSOLUTE 0.00 K/mm3 (0.00-0.02); NRBC Auto 0.0 /100 WBC (0.0-0.2); Platelet Count 332 K/mm3 (150-400); RDW Coefficient Variation 13.5 % (11.7-14.2); RDW Standard Deviation 43.8 fL (35.1-46.3)
[2025-01-14 12:05] LABS: Alanine Aminotransfer (ALT/SGP 16.0 U/L (12-78); Albumin, Blood 3.2 g/dL (3.4-5.0); Albumin/Globulin Ratio 0.8 (0.8-1.8); Anion Gap 11.0 mmol/L (3-11); Aspartate Aminotrans (AST/SGOT 23.0 U/L (12-37); Bilirubin, Total 0.4 mg/dL (0.1-1.0); Blood Urea Nitrogen 16.0 mg/dL (8-24); CO2, Blood 30.0 mmol/L (21-32); Calcium, Blood 9.3 mg/dL (8.5-10.1); Chloride, Blood 99.0 mmol/L (98-108); Creatinine, Blood 1.25 mg/dL (0.40-1.00); Globulin, Blood 4.0 g/dL (2.2-4.0); Glucose, Blood 111.0 mg/dL (70-99); Potassium, Blood 3.6 mmol/L (3.5-5.5); Sodium, Blood 136.0 mmol/L (136-145); Total Protein, Blood 7.2 g/dL (6.4-8.2)
== END ==
LOC: LAB SHORT 11:51 → LAB 11:51
PROVIDERS: Physician Assistant
DX: R10.9 Unspecified abdominal pain (principal); Z87.440 Personal history of urinary (tract) infections
CPT/HCPCS: 80053; 83690; 85025; 87077; 87086; 87186

== ENCOUNTER → 2025-01-23 | Outpatient (CLI) | payer MEDICARE | LOC: LAB 12:07 → LAB SHORT 12:07 | DX: N39.0 Urinary tract infection, site not specified (principal) | CPT/HCPCS: 87086 ==